=== PATIENT | male | born 1945 ===

== ENCOUNTER 2017-05-04 14:17 | Emergency (ER) | payer MEDICARE ==
[2017-05-04 14:17] VITALS: BMI 27.8
[2017-05-04 14:52] VITALS: RESP 18; TEMP 98.6
--- NOTE | 2017-05-04 15:21 | ED PDOC ---
Arrival/HPI - General Chief Complaint: Lower Extremity Problem/Injury Time Seen by Provider: 05/04/17 14:54 Historian: Patient - History of Present Illness Narrative History of Present Illness (Text): 05/04/17 15:15 72yo male with PMHx of Diabetes present with complaint of right sided hip pain that radiates laterally to his knee x 2days. He notes history of similar history years ago that resolved. Notes that pain is with ambulation. He is ambulating with a cane. Took Tylenol this morning with mild relieve. Denies trauma, focal weakness, saddle anesthesia, urinary/fecal incontinence, abdominal pain, calf pain, urinary symptoms, chest pain, SOB, recent travel. 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) Hx Cataracts: No - Renal Hx Renal Disorder: No - Endocrine/Metabolic Hx Endocrine Disorders: Yes Hx Diabetes Mellitus Type 2: Yes - Hematological/Oncological Hx Blood Disorders: No - Integumentary Hx Dermatological Disorder: No - Musculoskeletal/Rheumatological Hx Musculoskeletal Disorders: No - Gastrointestinal Hx Gastrointestinal Disorders: No - Genitourinary/Gynecological Hx Genitourinary Disorders: No - Psychiatric Hx Psychophysiologic Disorder: No Hx Substance Use: No - Surgical History Other/Comment: LEFT EYE SURGERY WHEN HE WAS A BABY - Anesthesia Hx Anesthesia: No Hx Anesthesia Reactions: No Family/Social History - Physician Review Nursing Documentation Reviewed: Yes Family/Social History: Unknown Family HX Smoking Status: Never Smoked Hx Alcohol Use: No Hx Substance Use: No Substance used: [id number] Allergies/Home Meds Allergies/Adverse Reactions: Allergies No Known Allergies Allergy (Verified 05/04/17 14:46) Home Medications: Home Meds Medication Instructions Recorded Confirmed Metformin ER [Glucophage XR] 500 mg PO BID 11/24/16 05/04/17 Review of Systems - Physician Review All systems were reviewed & negative as marked: Yes - Review of Systems Constitutional: Normal Eyes: Normal ENT: Normal Respiratory: Normal Cardiovascular: Normal Gastrointestinal: Normal Genitourinary Male: Normal Musculoskeletal: Arthralgias (Right hip pain) Skin: Normal Neurological: Normal Endocrine: Normal Hemo/Lymphatic: Normal Psychiatric: Normal Physical Exam Vital Signs Reviewed: Yes Vital Signs Temp Pulse Resp BP Pulse Ox 05/04/17 14:42 98.6 F 92 H 18 173/72 H 96 Temperature: Afebrile Blood Pressure: Normal Pulse: Regular Respiratory Rate: Normal Appearance: Positive for: Well-Appearing, Non-Toxic, Comfortable Pain Distress: None Mental Status: Positive for: Alert and Oriented X 3 - Systems Exam Head: Present: Atraumatic, Normocephalic Pupils: Present: PERRL Extroacular Muscles: Present: EOMI Conjunctiva: Present: Normal Mouth: Present: Moist Mucous Membranes Neck: Present: Normal Range of Motion Respiratory/Chest: Present: Clear to Auscultation, Good Air Exchange. No: Respiratory Distress, Accessory Muscle Use Cardiovascular: Present: Regular Rate and Rhythm, Normal S1, S2. No: Murmurs Abdomen: Present: Normal Bowel Sounds. No: Tenderness, Distention, Peritoneal Signs Back: Present: Pain with Leg Raise (Right leg). No: Midline Tenderness, Paraspinal Tenderness Upper Extremity: Present: Normal Inspection. No: Cyanosis, Edema Lower Extremity: Present: NORMAL PULSES, Normal ROM (Pain with full extension of right leg), Neurovascularly Intact. No: Edema, CALF TENDERNESS, Cyanosis, Tenderness, Swelling, Erythema, Deformity, Temperature Abnormalties Neurological: Present: GCS=15, CN II-XII Intact, Speech Normal Skin: Present: Warm, Dry, Normal Color. No: Rashes Psychiatric: Present: Alert, Oriented x 3, Normal Insight, Normal Concentration Medical Decision Making ED Course and Treatment: 05/04/17 18:44 B/L hip and LS xray - No acute finding. On re evaluation pt states his pain improved significantly. He was ambulatory and have no focal neurological deficit. he was given rx of Naprosyn, felexeril and Tramadol for pain. Referred to ortho. - RAD Interpretation Radiology Orders: 05/04/17 15:01 LS SPINE WITH OBL > 18 YRS OLD [RAD] Stat 05/04/17 15:21 Hip Bilateral [HIP MIN 3V W/ PELVIS ARISTEO] [RAD] Stat - Medication Orders Current Medication Orders: Discontinued Medications Diazepam (Valium) 5 mg PO ONCE ONE PRN Reason: Protocol Stop: 05/04/17 14:55 Last Admin: 05/04/17 15:28 Dose: 5 mg Ketorolac Tromethamine (Toradol) 60 mg IM STAT STA Stop: 05/04/17 14:55 Last Admin: 05/04/17 15:28 Dose: 60 mg Disposition/Present on Arrival - Present on Arrival Any Indicators Present on Arrival: No History of DVT/PE: No History of Uncontrolled Diabetes: No Urinary Catheter: No History of Decub. Ulcer: No History Surgical Site Infection Following: None - Disposition Have Diagnosis and Disposition been Completed?: Yes Diagnosis: Sciatica Disposition: HOME/ ROUTINE Disposition Time: 18:30 Patient Plan: Discharge Patient Problems: Current Active Problems Problem Status Onset Sciatica Acute Condition: STABLE Discharge Instructions (ExitCare): Sciatica (ED) Additional Instructions: Follow up with your doctor/Orthopedist Return to ED for any new or worsening symptoms Prescriptions: Cyclobenzaprine [Cyclobenzaprine HCl] 10 mg PO BID #10 tab Naproxen [Naprosyn] 500 mg PO BID #20 tablet traMADol [Ultram] 50 mg PO TID #10 tab Referrals: Aryan Navas [Primary Care Provider] - Follow up with primary Jed Keys DO [Staff Provider] - Follow up with primary
[2017-05-04 18:57] VITALS: O2SAT 98
[2017-05-04 18:58] VITALS: BP 150/88; PULSE 72
--- NOTE | 2017-05-05 08:13 | RAD ---
PROCEDURE: Radiographs of the Lumbar Spine. HISTORY: back pain COMPARISON: No prior. FINDINGS: BONES: Mild anterior wedge compression deformity of the L1 vertebra, of indeterminate age. Remaining vertebral bodies are maintained in height. There are Schmorl's nodes in the superior and inferior endplate of the L2 vertebra. There is curvilinear sclerosis in the inferior L4 vertebral body, uncertain significance. This may be due to a large old Schmorl's node. Transverse processes and posterior elements are intact. DISC SPACES: Narrowing of L4-5 disc space consistent with degenerative disc disease. The remaining disc spaces are preserved. OTHER FINDINGS: None. IMPRESSION: Mild anterior wedge compression deformity of the L1 vertebra, age indeterminate. Degenerative disc disease L4-5. No other acute abnormality.
--- NOTE | 2017-05-05 08:16 | RAD ---
PROCEDURE: Radiographs of the pelvis and bilateral hips HISTORY: right hip pain COMPARISON: None. FINDINGS: BONES: Pelvis: Unremarkable. Right hip:Unremarkable. Left hip:No fracture. There is a circumscribed lucent lesion in the left greater trochanter. This has a nonaggressive appearance. There is questionable curvilinear calcifications seen within this lesion which may reflect chondroid matrix. Consider further evaluation with magnetic resonance imaging. JOINTS: Right hip: Unremarkable. Left hip: Unremarkable. Sacroiliac Joints: Unremarkable. Pubic symphysis: Unremarkable. SOFT TISSUES: Normal. OTHER FINDINGS: None. IMPRESSION: No acute fracture. Lucent lesion of left greater trochanter with a nonaggressive appearance. Consider further evaluation with magnetic resonance imaging.
== END 2017-05-04 18:45 | disposition home or self-care (01) ==
LOC: ED 14:17
DX: M54.30 Sciatica, unspecified side (principal)
CPT/HCPCS: 72110; 73522; 96372; 99283; J1885

== ENCOUNTER 2018-01-17 15:21 | Inpatient (IN) | payer MEDICARE ==
[2018-01-17 15:54] VITALS: BMI 29.5
[2018-01-17 16:44] LABS: VENOUS BLOOD GAS BASE EXCESS 1.2 mmol/L (0.0-2.0); VENOUS BLOOD GAS PO2 42 mm/Hg (30-55)
--- NOTE | 2018-01-17 16:46 | ED PDOC ---
Arrival/HPI - General Chief Complaint: Abdominal Pain Time Seen by Provider: 01/17/18 16:07 Historian: Patient - History of Present Illness Narrative History of Present Illness (Text): 01/17/18 16:36 72 -year-old male with a history of diabetes who presents today with sudden onset of epigastric/upper abdominal pain that started at 11 AM today. Patient states the pain has improved it is now 6 out of 10 patient states the pain is intermittent and sharp and stabbing. Patient states he has slight pain in the back but denies that the pain radiates to the back. Patient denies chest pain or shortness of breath. Patient states he was recently diagnosed with bronchitis. Patient denies dizziness or weakness. Denies nausea vomiting diarrhea or constipation. Denies any urinary symptoms. Per patient's family,pt has a prior history of gallstones. Time/Duration: Other (11am) Symptom Onset: Sudden Symptom Course: Intermittent Quality: Stabbing Severity Level: 6 Past Medical History - Provider Review Nursing Documentation Reviewed: Yes - Travel History Have you recently traveled outside [place] w/in the past 3 mons?: No If Yes, travel location?: [facility] - Infectious Disease Hx of Infectious Diseases: None - Tetanus Immunization Tetanus Immunization: Unknown - Cardiac Hx Cardiac Disorders: Yes Hx Hypertension: Yes - Pulmonary Hx Respiratory Disorders: No - Neurological Hx Neurological Disorder: No - HEENT Hx HEENT Disorder: Yes (RETINAL DETACHMENT) 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) Hx Cataracts: No - Renal Hx Renal Disorder: No - Endocrine/Metabolic Hx Endocrine Disorders: Yes Hx Diabetes Mellitus Type 2: Yes - Hematological/Oncological Hx Blood Disorders: No - Integumentary Hx Dermatological Disorder: No - Musculoskeletal/Rheumatological Hx Musculoskeletal Disorders: No - Gastrointestinal Hx Gastrointestinal Disorders: No - Genitourinary/Gynecological Hx Genitourinary Disorders: No - Psychiatric Hx Psychophysiologic Disorder: No Hx Substance Use: No - Surgical History Hx Eye Surgery: Yes (LT EYE) Other/Comment: LEFT EYE SURGERY WHEN HE WAS A BABY - Anesthesia Hx Anesthesia: Yes Hx Anesthesia Reactions: No Hx Malignant Hyperthermia: No Family/Social History - Physician Review Nursing Documentation Reviewed: Yes Family/Social History: Unknown Family HX Smoking Status: Never Smoked Hx Alcohol Use: No Hx Substance Use: No Substance used: [id number] Allergies/Home Meds Allergies/Adverse Reactions: Allergies No Known Allergies Allergy (Verified 05/04/17 14:46) Home Medications: Home Meds Medication Instructions Recorded Confirmed Metformin ER [Glucophage XR] 500 mg PO BID 11/24/16 01/17/18 Atorvastatin [Lipitor] 1 tab PO DAILY 07/13/17 01/17/18 Multivitamin [Daily Essie] 1 tab PO DAILY 07/13/17 01/17/18 Review of Systems - Review of Systems Constitutional: absent: Fatigue, Fevers Respiratory: Cough. absent: SOB Cardiovascular: absent: Chest Pain, Palpitations Gastrointestinal: Abdominal Pain. absent: Constipation, Diarrhea, Nausea, Vomiting Genitourinary Male: absent: Dysuria, Frequency, Hematuria Musculoskeletal: Back Pain. absent: Arthralgias, Neck Pain Skin: absent: Rash, Pruritis Neurological: absent: Headache, Dizziness Psychiatric: absent: Anxiety, Depression Physical Exam Vital Signs Reviewed: Yes Vital Signs Temp Pulse Resp BP Pulse Ox 01/17/18 19:47 92 H 20 153/80 H 96 01/17/18 19:43 98.9 F 01/17/18 15:54 97.7 F 84 18 139/73 95 Temperature: Afebrile Blood Pressure: Normal Pulse: Regular Respiratory Rate: Normal Appearance: Positive for: Well-Appearing, Non-Toxic, Comfortable Pain Distress: None Mental Status: Positive for: Alert and Oriented X 3 - Systems Exam Head: Present: Atraumatic Mouth: Present: Moist Mucous Membranes Neck: Present: Normal Range of Motion Respiratory/Chest: Present: Clear to Auscultation, Good Air Exchange. No: Respiratory Distress, Accessory Muscle Use Cardiovascular: Present: Regular Rate and Rhythm, Normal S1, S2. No: Murmurs Abdomen: Present: Tenderness (+ RUQ, epigastric and mid abdominal tenderness. ) , Normal Bowel Sounds. No: Distention, Peritoneal Signs, Rebound, Guarding Back: Present: Normal Inspection. No: CVA Tenderness, Midline Tenderness, Paraspinal Tenderness Upper Extremity: Present: Normal ROM Lower Extremity: Present: Normal ROM. No: Edema Neurological: Present: GCS=15, Speech Normal Skin: Present: Warm, Dry, Normal Color. No: Rashes Psychiatric: Present: Alert, Oriented x 3 Medical Decision Making ED Course and Treatment: 01/17/18 16:48 Patient is nontoxic well appearing with stable vital signs presenting with abdominal pain CBC wbcs; 20.5 CMP: wnl Lipase: wnl trop: wnl Urinalysis: wnl blood cultures pending Patient reassessment: pt c/o chills; rectal temp; afebrile. zosyn GIVEN iv. Ultrasound:FINDINGS: LIVER: Measures 17.2 cm. Hepatopedal blood flow. Fatty infiltration manifest ultrasonographically as increased echogenicity of the liver parenchyma. No mass. No intrahepatic bile duct dilatation. GALLBLADDER: Cholelithiasis. Negative study for gallbladder wall thickening, pericholecystic fluid, sonographic Omrales's sign. COMMON BILE DUCT: Measures 4.2 mm. No stones. No dilatation. PANCREAS: Unremarkable as visualized. No mass. No ductal dilatation. RIGHT KIDNEY: Measures 5.7 x 10.5cm. Normal echogenicity. No calculus, mass, or hydronephrosis. LEFT KIDNEY: Measures 6.30 x 12cm. Normal echogenicity. No calculus, mass or hydronephrosis. SPLEEN: Obscured by overlying bowel gas. Non diagnostic assessment of the spleen AORTA: No aneurysmal dilatation. IVC: Unremarkable. OTHER FINDINGS: None. IMPRESSION: Cholelithiasis. No sonographic evidence of acute cholecystitis. CAT scan chest; FINDINGS: Lungs: Patchy nonspecific groundglass density and atelectatic changes are identified within the lungs bilaterally. Emphysematous/bullous changes are visualized within the right lower lobe. Mild emphysematous changes are identified within the left lower lobe, which are centrilobular and paraseptal. Within the right lower lobe, there is a 5 mm calcified lung nodule. No lung mass. Pleural space: No pneumothorax. No significant effusion. Mild right pleural thickening. Heart: A small amount of fluid is visualized within the superior pericardial recess. No cardiomegaly. Bones/joints: There is a mild compression fracture involving L1 vertebral body, indeterminate in acuity. Hypertrophic degenerative changes are noted within the spine. There is increasing cavity of multiple thoracic endplates, to stable. Vasculature: No thoracic aortic aneurysm. Lymph nodes: There is an enlarged right lower paratracheal lymph node within the mediastinum measuring 2.3 x 1.4 cm, without significant progression. A 1.3 cm left axillary lymph node is visualized, which has slightly decreased in size. Gallbladder and bile ducts: Multiple hyperdense gallstones are visualized within the gallbladder. Spleen: Linear hyperdense scarring is seen within the left upper quadrant of the abdomen. The spleen is absent. Kidneys and ureters: There is a tiny calcification of nonobstructing calculus within the right kidney. Nonspecific perinephric stranding is seen bilaterally. IMPRESSION: 1. Patchy nonspecific groundglass density and atelectatic changes are identified within the lungs bilaterally. There is mildly decreased aeration of the bilateral upper lobes. 2. Emphysematous/bullous changes are visualized within the right lower lobe. Mild emphysematous changes are identified within the left lower lobe. 3. There is an enlarged right lower paratracheal lymph node within the mediastinum measuring 2.3 x 1.4 cm, without significant progression. A 1.3 cm left axillary lymph node is visualized, which has slightly decreased in size. 4. Cholelithiasis. 5. There is a mild compression fracture involving L1 vertebral body, indeterminate in acuity. Clinical correlation is recommended. 6. Mild right pleural thickening. 7. Additional CT findings described above. ct of abd/pelvis; FINDINGS: Lower thorax: For discussion of findings of the lung bases, refer to the chest CT report from the same day. ABDOMEN: Liver: There is hypodense fatty infiltration of the liver. Gallbladder and bile ducts: Multiple hyperdense gallstones are visualized. Pancreas: Normal contour, without acute peripancreatic stranding. Spleen: The spleen is absent. Linear hyperdense scarring is visualized in the left upper quadrant of the abdomen. Adrenals: No mass. Kidneys and ureters: There is lobulation of the bilateral renal cortices. Nonspecific perinephric stranding is seen bilaterally. At the upper pole the right kidney, there is a hypodense probable cyst measuring 1.4 x 1.2 cm. Stomach and bowel: Colonic diverticula are identified, without acute inflammatory stranding of the adjacent mesentery. There is mild wall thickening of the transverse, descending and sigmoid colon, consistent with incomplete distention or mild colitis. Appendix: No findings to suggest acute appendicitis. PELVIS: Bladder: The bladder is distended. Reproductive: The prostate is mildly enlarged. ABDOMEN and PELVIS: Intraperitoneal space: No free air. Bones/joints: There is a mild compression of the L1 vertebral body, indeterminate in acuity. There is increased concavity of the inferior L4 endplate. Sclerotic and erosive changes are also identified of the L4 vertebral body inferiorly. Osteomyelitis cannot be excluded. Within the left greater trochanter and intertrochanteric region, there is a 3.5 x 4.4 x 2.6 cm lytic lesion There is abnormal density involving the bilateral femoral heads, likely secondary to arthropathy or due to osteonecrosis. Additional lytic lesions cannot be excluded. Oss[place] loose bodies are visualized adjacent to the anterior-inferior iliac spine. Soft tissues: There is a focal area of increased fat or lipoma within the paraspinal musculature measuring 3.6 x 2.9 cm. There is mild herniation of fat into the right inguinal canal. Vasculature: There is atherosclerotic calcification of the abdominal aorta. No abdominal aortic aneurysm. Lymph nodes: No enlarged lymph nodes. IMPRESSION: 1. There is hypodense fatty infiltration of the liver. 2. Diverticulosis. 3. There is mild wall thickening of the transverse, descending and sigmoid colon , consistent with incomplete distention or mild colitis. 4. The prostate is mildly enlarged. 5. The bladder is distended. 6. There is a mild compression of the L1 vertebral body, indeterminate in acuity. There is increased concavity of the inferior L4 endplate. Sclerotic and erosive changes are also identified of the L4 vertebral body inferiorly. Osteomyelitis cannot be excluded. Clinical correlation and an MRI of the lumbar spine with/without contrast is recommended. 7. Within the left greater trochanter and intertrochanteric region, there is a 3.5 x 4.4 x 2.6 cm lytic lesion . There is abnormal density involving the bilateral femoral heads, likely secondary to arthropathy or due to osteonecrosis. Additional lytic lesions cannot be excluded. 8. Additional CT findings described above. case was discussed with the surgical first assistant dr. Byron CHARLES who saw patient at beside; based on possible colitis on CT will add cipro/flagyl Discussed all results with patient in depth pt of dr. ballesteros will admit to hospitalist. case discussed with dr. matta accepts admission Impression: Abdominal pain, cholelithiasis, colitis, lytic lesions, compression fracture, leukocytosis. admit to med/surg. - Lab Interpretations Lab Results: 01/17/18 16:30 01/17/18 16:30 Lab Results 01/17/18 19:23: Urine Color Yellow, Urine Appearance Clear, Urine pH 7.5, Ur Specific [place] 1.015, Urine Protein Negative, Urine Glucose (UA) Negative, Urine Ketones Negative, Urine Blood Negative, Urine Nitrate Negative, Urine Bilirubin Negative, Urine Urobilinogen 1.0 H, Ur Leukocyte Esterase Negative 01/17/18 16:41: POC Glucose (mg/dL) 185 H 01/17/18 16:30: WBC 20.5 H, RBC 3.77, Hgb 11.7 L, Hct 31.6 L, MCV 83.8, MCH 31.0 , MCHC 37.0, RDW 19.4 H, Plt Count 396, MPV 11.0, Gran % 85.1 H, Lymph % (Auto) 4.2 L, [place] % (Auto) 10.4 H, Eos % (Auto) 0.1 L, Baso % (Auto) 0.2, Gran # 17.41 H, Lymph # (Auto) 0.9 L, [place] # (Auto) 2.1 H, Eos # (Auto) 0.0, Baso # ( Auto) 0.05, Neutrophils % (Manual) 84 H, Band Neutrophils % 3 H, Lymphocytes % ( Manual) 6 L, Monocytes % (Manual) 7 H, Platelet Evaluation Normal, Hypochromasia 1+, Anisocytosis (manual) 1+, Microcytosis (manual) 1+ 01/17/18 16:30: Sodium 143, Chloride 106, Potassium 4.9, Carbon Dioxide 26, Anion Gap 16, BUN 19, Creatinine 1.1, Est GFR ( Amer) > 60, Est GFR (Non- Af Amer) > 60, Random Glucose 183 H, Calcium 9.5, Total Bilirubin 4.1 H, AST 235 H, ALT 118 H, Alkaline Phosphatase 187 H, Lactate Dehydrogenase 786 H, Total Creatine Kinase 36, Troponin I < 0.01, Total Protein 7.5, Albumin 4.0, Globulin 3.6, Albumin/Globulin Ratio 1.1, Amylase 83, Lipase 210 01/17/18 16:30: pO2 42, VBG pH 7.30 L, VBG pCO2 59.0, VBG HCO3 29.0 H, VBG Total CO2 30.8 H, VBG O2 Sat (Calc) 71.6 H, VBG Base Excess 1.2, VBG Potassium 5.1, Sodium 140.0, Chloride 107.0, Glucose 188 H, Lactate 1.8, FiO2 21.0, Venous Blood Potassium 5.1 - RAD Interpretation Radiology Orders: 01/17/18 16:08 CHEST PORTABLE [RAD] Stat 01/17/18 16:22 ABD & PELVIS IV CONTRAST ONLY [CT] Stat 01/17/18 17:02 ABDOMEN COMPLETE [US] Stat 01/17/18 18:30 CHEST W/O CONTRAST [CT] Stat - Medication Orders Current Medication Orders: Ceftriaxone Sodium (Rocephin 1 Gram Ivpb) 1 gm in 100 mls @ 100 mls/hr IVPB DAILY JENAE PRN Reason: Protocol Sodium Chloride (Sodium Chloride 0.9%) 1,000 mls @ 100 mls/hr IV .Q10H JENAE Ciprofloxacin (Cipro 400mg/200ml Dsw) 400 mg in 200 mls @ 133.3 mls/hr IVPB STAT STA PRN Reason: Protocol Stop: 01/17/18 22:29 Metronidazole (Flagyl) 500 mg in 100 mls @ 100 mls/hr IVPB STAT STA PRN Reason: Protocol Stop: 01/17/18 21:58 Discontinued Medications Piperacillin Sod/Tazobactam Sod (Zosyn 3.375 In Ns 100ml) 100 mls @ 200 mls/hr IVPB STAT STA PRN Reason: Protocol Stop: 01/17/18 17:50 Last Admin: 01/17/18 19:21 Dose: 200 mls/hr eMAR Start Stop Document 01/17/18 19:21 HI (Rec: 01/17/18 19:21 HI [id number]) Intravenous Solution Start Date 01/17/18 Start Time 19:21 Disposition/Present on Arrival - Present on Arrival Any Indicators Present on Arrival: No History of DVT/PE: No History of Uncontrolled Diabetes: No Urinary Catheter: No History of Decub. Ulcer: No History Surgical Site Infection Following: None - Disposition Have Diagnosis and Disposition been Completed?: Yes Diagnosis: Leukocytosis, Cholelithiasis, Elevated LFTs, Compression fracture, Lytic bone lesion of hip, Colitis Disposition: HOSPITALIZED Disposition Time: 21:07 Patient Plan: Admission Patient Problems: Current Active Problems Problem Status Onset Cholelithiasis Acute Colitis Acute Compression fracture Acute Elevated LFTs Acute Leukocytosis Acute Lytic bone lesion of hip Acute Condition: FAIR Referrals: Aryan Ballesteros [Primary Care Provider] - Follow up with primary Forms: [employer] ([place])
[2018-01-17 16:53] LABS: BASO # 0.05 K/mm3 (0.0-2.0); BASO % 0.2 % (0.0-3.0); EOS % 0.1 % (1.5-5.0); GRAN # 17.41 (1.4-6.5); GRAN % 85.1 % (50.0-68.0); HEMOGLOBIN 11.7 g/dL (14.0-18.0); LYMPH # 0.9 (1.2-3.4); LYMPH % 4.2 % (22.0-35.0); MEAN CELL VOLUME 83.8 fl (80.0-105.0); MONO # 2.1 (0.1-0.6); MONO % 10.4 % (1.0-6.0); PLATELET COUNT 396 10^3/uL (120.0-450.0); RBC 3.77 10^6/uL (3.5-6.1); RED CELL DISTRIBUTION WIDTH 19.4 % (11.5-14.5); WHITE BLOOD COUNT 20.5 10^3/ul (4.5-11.0)
[2018-01-17 17:00] LABS: ALB/GLOB RATIO 1.1 (1.1-1.8); ALT/SGPT 118 U/L (7-56); AMYLASE 83 U/L (35-125); AST/SGOT 235 U/L (17-59); BLOOD UREA NITROGEN 19 mg/dL (7-21); CALCIUM 9.5 mg/dL (8.4-10.5); GFR AFRICAN-AMERICAN > 60; GFR NON-AFRICAN AMERICAN > 60; LIPASE 210 U/L (23-300)
--- NOTE | 2018-01-17 17:02 | RAD ---
HISTORY: abd pain COMPARISON: 01/09/2018 FINDINGS: LUNGS: Bibasilar linear atelectatic and/or fibrotic changes are noted current appearance is eccentric by the apical lordotic projection. PLEURA: No significant pleural effusion identified, no pneumothorax apparent. Chronic right inferolateral pleural thickening reaction. CARDIOVASCULAR: Probable top-normal heart size. OSSEOUS STRUCTURES: Bilateral shoulder arthrosis. VISUALIZED UPPER ABDOMEN: Normal. OTHER FINDINGS: None. IMPRESSION: Allowing for differences in technique, no interval pathology noted
[2018-01-17 17:17] LABS: TROPONIN I < 0.01 ng/mL
[2018-01-17] MEDS ORDERED: Piperacillin/Tazobact 3.375 gm 100 ML IVPB STA (17:21)
[2018-01-17 17:46] LABS: BAND 3 % (0-2); NEUTROPHIL 84 % (50.0-70.0)
[2018-01-17 17:47] LABS: ANISOCYTOSIS 1+; HYPOCHROMIA 1+; LYMPHOCYTE 6 % (22.0-35.0); MICROCYTOSIS 1+; MONOCYTE 7 % (1.0-6.0); PLATELET ESTIMATE NORMAL (NORMAL)
[2018-01-17] MEDS ORDERED: Iohexol 350 MG/100 ML VIAL ONE (18:12)
--- NOTE | 2018-01-17 18:47 | US ---
HISTORY: upper abdominal pain COMPARISON: None. TECHNIQUE: Sonographic evaluation of the abdomen. FINDINGS: LIVER: Measures 17.2 cm. Hepatopedal blood flow. Fatty infiltration manifest ultrasonographically as increased echogenicity of the liver parenchyma. No mass. No intrahepatic bile duct dilatation. GALLBLADDER: Cholelithiasis. Negative study for gallbladder wall thickening, pericholecystic fluid, sonographic Morales's sign. COMMON BILE DUCT: Measures 4.2 mm. No stones. No dilatation. PANCREAS: Unremarkable as visualized. No mass. No ductal dilatation. RIGHT KIDNEY: Measures 5.7 x 10.5cm. Normal echogenicity. No calculus, mass, or hydronephrosis. LEFT KIDNEY: Measures 6.30 x 12cm. Normal echogenicity. No calculus, mass or hydronephrosis. SPLEEN: Obscured by overlying bowel gas. Non diagnostic assessment of the spleen AORTA: No aneurysmal dilatation. IVC: Unremarkable. OTHER FINDINGS: None. IMPRESSION: Cholelithiasis. No sonographic evidence of acute cholecystitis.
[2018-01-17 19:36] LABS: PH,URINE 7.5 (4.7-8.0); URINE APPEARANCE CLEAR (CLEAR); URINE BILIRUBIN NEGATIVE (NEGATIVE); URINE BLOOD NEGATIVE (NEGATIVE); URINE COLOR YELLOW (YELLOW); URINE GLUCOSE (UA) NEGATIVE (NEGATIVE); URINE LEUKOCYTE ESTERASE NEGATIVE Leu/uL (NEGATIVE); URINE PROTEIN NEGATIVE mg/dL (<30 mg/dL)
--- NOTE | 2018-01-17 20:28 | CP.PCM.CON ---
History of Present Illness - History of Present Illness History of Present Illness: Surgery 72 M w PMH of Cholelithiasis, DM, and GERD came with RUQ and epigastric area that started yesterday. Pain is abrubt and constant. Doesn't radiate. Reports chills. Denies N/V/D/CP/SOB/diarreah/hematemesis/hematochezia/dysuria/oliguria/ hematuria/hemoptesis. Pt reports travelling from [place] about 1 month ago. Denies change in bowel habit/ sick contact/ change in diet. Pt had EGD/ colonoscopy in the past and showed GERD, esophagitis, and adenomatous polyps. Pt had similar pain in the past and is diagnosed with cholelithiasis before. WBC was 20k with elevated LFT. US shows gallstones on the neck of the gallbladder, mildly thicken GB wall and 4mm CBD. PMH : DM, GERD, Esophagitis, Colon polyps PSH: L finger sx, L eye sx for retinal disease SS: Lives with family. Non Smoker. 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) Hx Cataracts: No - RENAL Hx Chronic Kidney Disease: No - ENDOCRINE/METABOLIC Hx Endocrine Disorders: Yes Hx Diabetes Mellitus Type 2: Yes - HEMATOLOGICAL/ONCOLOGICAL Hx Blood Disorders: No - INTEGUMENTARY Hx Dermatological Problems: No - MUSCULOSKELETAL/RHEUMATOLOGICAL Hx Musculoskeletal Disorders: No - GASTROINTESTINAL Hx Gastrointestinal Disorders: No - GENITOURINARY/GYNECOLOGICAL Hx Genitourinary Disorders: No - PSYCHIATRIC Hx Psychophysiologic Disorder: No Hx Substance Use: No - SURGICAL HISTORY Hx Eye Surgery: Yes (LT EYE) Other/Comment: LEFT EYE SURGERY WHEN HE WAS A BABY - ANESTHESIA Hx Anesthesia: Yes Hx Anesthesia Reactions: No Hx Malignant Hyperthermia: No Meds Allergies/Adverse Reactions: Allergies Allergy/AdvReac Type Severity Reaction Status Date / Time No Known Allergies Allergy Verified 05/04/17 14:46 - Medications Medications: Current Medications Ceftriaxone Sodium (Rocephin 1 Gram Ivpb) 1 gm in 100 mls @ 100 mls/hr IVPB DAILY [facility] PRN Reason: Protocol Sodium Chloride (Sodium Chloride 0.9%) 1,000 mls @ 100 mls/hr IV .Q10H JENAE Physical Exam - Constitutional Appears: Non-toxic - Head Exam Head Exam: ATRAUMATIC, NORMAL INSPECTION, NORMOCEPHALIC - Eye Exam Eye Exam: absent: Normal appearance - ENT Exam ENT Exam: Mucous Membranes Moist, Normal Exam - Neck Exam Neck exam: Positive for: Normal Inspection - Respiratory Exam Respiratory Exam: Clear to Auscultation Bilateral, NORMAL BREATHING PATTERN - Cardiovascular Exam Cardiovascular Exam: REGULAR RHYTHM, +S1, +S2 - GI/Abdominal Exam GI & Abdominal Exam: Normal Bowel Sounds, Soft, Tenderness Additional comments: RUQ, Epigastric TTP - Extremities Exam Extremities exam: Positive for: full ROM, normal inspection - Back Exam Back exam: NORMAL INSPECTION - Neurological Exam Neurological exam: Alert, CN II-XII Intact, Normal Gait, Oriented x3, Reflexes Normal - Psychiatric Exam Psychiatric exam: Normal Affect, Normal Mood - Skin Skin Exam: Dry, Intact, Normal Color, Warm Results - Vital Signs Recent Vital Signs: Last Vital Signs Temp 98.9 F 01/17/18 19:43 Pulse 92 H 01/17/18 19:47 Resp 20 01/17/18 19:47 BP 153/80 H 01/17/18 19:47 Pulse Ox 96 01/17/18 19:47 - Labs Result Diagrams: 01/17/18 16:30 01/17/18 16:30 Labs: Laboratory Results - last 24 hr 01/17/18 01/17/18 01/17/18 16:30 16:30 16:30 WBC 20.5 H RBC 3.77 Hgb 11.7 L Hct 31.6 L MCV 83.8 MCH 31.0 MCHC 37.0 RDW 19.4 H Plt Count 396 MPV 11.0 Gran % 85.1 H Lymph % (Auto) 4.2 L [place] % (Auto) 10.4 H Eos % (Auto) 0.1 L Baso % (Auto) 0.2 Gran # 17.41 H Lymph # (Auto) 0.9 L [place] # (Auto) 2.1 H Eos # (Auto) 0.0 Baso # (Auto) 0.05 Neutrophils % (Manual) 84 H Band Neutrophils % 3 H Lymphocytes % (Manual) 6 L Monocytes % (Manual) 7 H Platelet Evaluation Normal Hypochromasia 1+ Anisocytosis (manual) 1+ Microcytosis (manual) 1+ pO2 42 VBG pH 7.30 L VBG pCO2 59.0 VBG HCO3 29.0 H VBG Total CO2 30.8 H VBG O2 Sat (Calc) 71.6 H VBG Base Excess 1.2 VBG Potassium 5.1 Sodium 140.0 143 Chloride 107.0 106 Glucose 188 H Lactate 1.8 FiO2 21.0 Potassium 4.9 Carbon Dioxide 26 Anion Gap 16 BUN 19 Creatinine 1.1 Est GFR ( Amer) > 60 Est GFR (Non-Af Amer) > 60 POC Glucose (mg/dL) Random Glucose 183 H Calcium 9.5 Total Bilirubin 4.1 H AST 235 H ALT 118 H Alkaline Phosphatase 187 H Lactate Dehydrogenase 786 H Total Creatine Kinase 36 Troponin I < 0.01 Total Protein 7.5 Albumin 4.0 Globulin 3.6 Albumin/Globulin Ratio 1.1 Amylase 83 Lipase 210 Venous Blood Potassium 5.1 Urine Color Urine Appearance Urine pH Ur Specific [place] Urine Protein Urine Glucose (UA) Urine Ketones Urine Blood Urine Nitrate Urine Bilirubin Urine Urobilinogen Ur Leukocyte Esterase 01/17/18 01/17/18 16:41 19:23 WBC RBC Hgb Hct MCV MCH MCHC RDW Plt Count MPV Gran % Lymph % (Auto) [place] % (Auto) Eos % (Auto) Baso % (Auto) Gran # Lymph # (Auto) [place] # (Auto) Eos # (Auto) Baso # (Auto) Neutrophils % (Manual) Band Neutrophils % Lymphocytes % (Manual) Monocytes % (Manual) Platelet Evaluation Hypochromasia Anisocytosis (manual) Microcytosis (manual) pO2 VBG pH VBG pCO2 VBG HCO3 VBG Total CO2 VBG O2 Sat (Calc) VBG Base Excess VBG Potassium Sodium Chloride Glucose Lactate FiO2 Potassium Carbon Dioxide Anion Gap BUN Creatinine Est GFR ( Amer) Est GFR (Non-Af Amer) POC Glucose (mg/dL) 185 H Random Glucose Calcium Total Bilirubin AST ALT Alkaline Phosphatase Lactate Dehydrogenase Total Creatine Kinase Troponin I Total Protein Albumin Globulin Albumin/Globulin Ratio Amylase Lipase Venous Blood Potassium Urine Color Yellow Urine Appearance Clear Urine pH 7.5 Ur Specific [place] 1.015 Urine Protein Negative Urine Glucose (UA) Negative Urine Ketones Negative Urine Blood Negative Urine Nitrate Negative Urine Bilirubin Negative Urine Urobilinogen 1.0 H Ur Leukocyte Esterase Negative Assessment & Plan - Assessment and Plan (Free Text) Assessment: Cholecystitis v symtomatic cholelithiasis -NPO -IVF hydration -IV ABX Rocephin for cholecystitis -Strict intake and output : Morales -Medical management -Trend LFT, WBC -Monitor VS DW Dr. Iqbal
--- NOTE | 2018-01-17 20:42 | CT ---
EXAM: CT Chest Without Intravenous Contrast EXAM DATE/TIME: 01/17/2018 6:30 PM CLINICAL HISTORY: The patient age is 72 years old and is male; Abnormal findings; Abnormal radiologic exam of lung or chest; Additional info: Abdominal pain/ abnormal cxr; Leukocytosis r/opna Facility exam id and description: Ct chests chest w/o contrast TECHNIQUE: Axial computed tomography images of the chest without intravenous contrast. All CT scans at this facility use one or more dose reduction techniques, viz.: automated exposure control; ma/kV adjustment per patient size (including targeted exams where dose is matched to indication; i.e. head); or iterative reconstruction technique. Coronal and sagittal reformatted images were created and reviewed. COMPARISON: CT - CHEST W/O CONTRAST 2016-01-05 13:10 FINDINGS: Lungs: Patchy nonspecific groundglass density and atelectatic changes are identified within the lungs bilaterally. Emphysematous/bullous changes are visualized within the right lower lobe. Mild emphysematous changes are identified within the left lower lobe, which are centrilobular and paraseptal. Within the right lower lobe, there is a 5 mm calcified lung nodule. No lung mass. Pleural space: No pneumothorax. No significant effusion. Mild right pleural thickening. Heart: A small amount of fluid is visualized within the superior pericardial recess. No cardiomegaly. Bones/joints: There is a mild compression fracture involving L1 vertebral body, indeterminate in acuity. Hypertrophic degenerative changes are noted within the spine. There is increasing cavity of multiple thoracic endplates, to stable. Vasculature: No thoracic aortic aneurysm. Lymph nodes: There is an enlarged right lower paratracheal lymph node within the mediastinum measuring 2.3 x 1.4 cm, without significant progression. A 1.3 cm left axillary lymph node is visualized, which has slightly decreased in size. Gallbladder and bile ducts: Multiple hyperdense gallstones are visualized within the gallbladder. Spleen: Linear hyperdense scarring is seen within the left upper quadrant of the abdomen. The spleen is absent. Kidneys and ureters: There is a tiny calcification of nonobstructing calculus within the right kidney. Nonspecific perinephric stranding is seen bilaterally. IMPRESSION: 1. Patchy nonspecific groundglass density and atelectatic changes are identified within the lungs bilaterally. There is mildly decreased aeration of the bilateral upper lobes. 2. Emphysematous/bullous changes are visualized within the right lower lobe. Mild emphysematous changes are identified within the left lower lobe. 3. There is an enlarged right lower paratracheal lymph node within the mediastinum measuring 2.3 x 1.4 cm, without significant progression. A 1.3 cm left axillary lymph node is visualized, which has slightly decreased in size. 4. Cholelithiasis. 5. There is a mild compression fracture involving L1 vertebral body, indeterminate in acuity. Clinical correlation is recommended. 6. Mild right pleural thickening. 7. Additional CT findings described above.
--- NOTE | 2018-01-17 20:53 | CT ---
EXAM: CT Abdomen and Pelvis With Intravenous Contrast EXAM DATE/TIME: 01/17/2018 4:22 PM CLINICAL HISTORY: The patient age is 72 years old and is male; Pain; Abdominal pain; Generalized; Patient HX: Pt denies any abdominal SX; Additional info: [facility] pain Facility exam id and description: Ct chests chest w/o contrast TECHNIQUE: Axial computed tomography images of the abdomen and pelvis with intravenous contrast. All CT scans at this facility use one or more dose reduction techniques, viz.: automated exposure control; ma/kV adjustment per patient size (including targeted exams where dose is matched to indication; i.e. head); or iterative reconstruction technique. Coronal and sagittal reformatted images were created and reviewed. CONTRAST: 100 mL of OMNI 350 administered intravenously. COMPARISON: DX - HIP ARISTEO W/WO PELVIS 3-4 VIEWS 2017-05-04 17:05 FINDINGS: Lower thorax: For discussion of findings of the lung bases, refer to the chest CT report from the same day. ABDOMEN: Liver: There is hypodense fatty infiltration of the liver. Gallbladder and bile ducts: Multiple hyperdense gallstones are visualized. Pancreas: Normal contour, without acute peripancreatic stranding. Spleen: The spleen is absent. Linear hyperdense scarring is visualized in the left upper quadrant of the abdomen. Adrenals: No mass. Kidneys and ureters: There is lobulation of the bilateral renal cortices. Nonspecific perinephric stranding is seen bilaterally. At the upper pole the right kidney, there is a hypodense probable cyst measuring 1.4 x 1.2 cm. Stomach and bowel: Colonic diverticula are identified, without acute inflammatory stranding of the adjacent mesentery. There is mild wall thickening of the transverse, descending and sigmoid colon, consistent with incomplete distention or mild colitis. Appendix: No findings to suggest acute appendicitis. PELVIS: Bladder: The bladder is distended. Reproductive: The prostate is mildly enlarged. ABDOMEN and PELVIS: Intraperitoneal space: No free air. Bones/joints: There is a mild compression of the L1 vertebral body, indeterminate in acuity. There is increased concavity of the inferior L4 endplate. Sclerotic and erosive changes are also identified of the L4 vertebral body inferiorly. Osteomyelitis cannot be excluded. Within the left greater trochanter and intertrochanteric region, there is a 3.5 x 4.4 x 2.6 cm lytic lesion There is abnormal density involving the bilateral femoral heads, likely secondary to arthropathy or due to osteonecrosis. Additional lytic lesions cannot be excluded. Ossific loose bodies are visualized adjacent to the anterior-inferior iliac spine. Soft tissues: There is a focal area of increased fat or lipoma within the paraspinal musculature measuring 3.6 x 2.9 cm. There is mild herniation of fat into the right inguinal canal. Vasculature: There is atherosclerotic calcification of the abdominal aorta. No abdominal aortic aneurysm. Lymph nodes: No enlarged lymph nodes. IMPRESSION: 1. There is hypodense fatty infiltration of the liver. 2. Diverticulosis. 3. There is mild wall thickening of the transverse, descending and sigmoid colon, consistent with incomplete distention or mild colitis. 4. The prostate is mildly enlarged. 5. The bladder is distended. 6. There is a mild compression of the L1 vertebral body, indeterminate in acuity. There is increased concavity of the inferior L4 endplate. Sclerotic and erosive changes are also identified of the L4 vertebral body inferiorly. Osteomyelitis cannot be excluded. Clinical correlation and an MRI of the lumbar spine with/without contrast is recommended. 7. Within the left greater trochanter and intertrochanteric region, there is a 3.5 x 4.4 x 2.6 cm lytic lesion . There is abnormal density involving the bilateral femoral heads, likely secondary to arthropathy or due to osteonecrosis. Additional lytic lesions cannot be excluded. 8. Additional CT findings described above.
[2018-01-17] MEDS ORDERED: Ciprofloxacin 400mg/200ml D5W 400 MG/200 ML BAG IVPB STA (20:59)
[2018-01-17] MEDS ORDERED: metroNIDAZOLE IV 500 mg/100 ml 500 MG/100 ML BAG IVPB STA (20:59)
[2018-01-17] MEDS ORDERED: Sodium Chloride 0.9% 1,000 ML IV STA ×2 (21:59→22:18)
--- NOTE | 2018-01-17 22:27 | CP.PCM.HP ---
<Harish Marin - Last Filed: 01/18/18 00:37> History of Present Illness - History of Present Illness History of Present Illness: Harish Marin PGY1 H&P Note for Hospitalist Service cc: RUQ Pain x1 day Mr. Mclain is a 72yo M with a PMH of DM2, HTN, HLD and GERD who presents to ED with RUQ pain x1 day. The patient speaks Filipino only but daughter is bedside and provides translation. The patient states that the onset was sudden and constant, non-radiating, a/w chills. Patient denies nausea/ vomiting, diarrhea/constipation (last BM was this morning), bowel habit changes , urinary habit changes, feeling of incomplete urinary voiding, chest pain, fevers, shortness of breath, cough, hematemesis/hematochezia or any weight changes. The patient was in [place] from 08/2017 to early 12/2017, and there, the patient was hospitalized for 3 days for pneumonia, non-complicated by intubation or ICU stay. The daughter states that the family brought the patient back to the [place] because of increased ETOH use there. She also states that the patient is a picky eater and only eats his 's food, and no one else at home is sick. 12-pt ROS was reviewed and is otherwise unremarkable. Prior chart review revealed EGD/colonoscopy w/ biopsies in 2017 showing small hiatus hernia, esophagitis consistent w/ morena, gastritis, bleeding internal hemorrhoids and hyperplastic colonic polyp. 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 compression deformity noted in L4 vertebrae. PMH : as above PSH: L finger contracture sx, L eye sx for retinal disease Meds: as per MAR NKDA SHx: Lives with and daughters. +tobacco hx 1pk/d for many years but quit 30 yrs ago. denies ETOH use but according to daughter, was drinking heavily while away in [place]. denies IVDA, or any illicit drug use. Present on Admission - Present on Admission Any Indicators Present on Admission: No Review of Systems - Review of Systems All systems: reviewed and no additional remarkable complaints except (as per HPI ) Past Patient History - Infectious Disease Hx of Infectious Diseases: None - Tetanus Immunizations Tetanus Immunization: Unknown - Past Medical History & Family History Past Medical History?: Yes - Past Social History Smoking Status: Former Smoker Alcohol: None Drugs: Denies Home Situation {Lives}: With Family - CARDIAC Hx Cardiac Disorders: Yes Hx Hypercholesterolemia: Yes Hx Hypertension: Yes - PULMONARY Hx Respiratory Disorders: No - NEUROLOGICAL Hx Neurological Disorder: No - HEENT Hx 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) Hx Cataracts: No - RENAL Hx Chronic Kidney Disease: No - ENDOCRINE/METABOLIC Hx Endocrine Disorders: Yes Hx Diabetes Mellitus Type 2: Yes - HEMATOLOGICAL/ONCOLOGICAL Hx Blood Disorders: No - INTEGUMENTARY Hx Dermatological Problems: No - MUSCULOSKELETAL/RHEUMATOLOGICAL Hx Musculoskeletal Disorders: No - GASTROINTESTINAL Hx Gastrointestinal Disorders: No - GENITOURINARY/GYNECOLOGICAL Hx Genitourinary Disorders: No Hx Prostate Cancer: No Hx Prostate Problems: No - PSYCHIATRIC Hx Psychophysiologic Disorder: No Hx Substance Use: No - SURGICAL HISTORY Hx Eye Surgery: Yes (LT EYE) Hx Orthopedic Surgery: Yes (hand tendon release) Other/Comment: LEFT EYE SURGERY WHEN HE WAS A BABY - ANESTHESIA Hx Anesthesia: Yes Hx Anesthesia Reactions: No Hx Malignant Hyperthermia: No Meds Allergies/Adverse Reactions: Allergies Allergy/AdvReac Type Severity Reaction Status Date / Time No Known Allergies Allergy Verified 05/04/17 14:46 Physical Exam - Constitutional Appears: Non-toxic, No Acute Distress - Head Exam Head Exam: ATRAUMATIC, NORMAL INSPECTION - Eye Exam Eye Exam: EOMI Additional comments: L eye is opacified completely R eye pterygium - ENT Exam ENT Exam: Mucous Membranes Moist - Neck Exam Neck exam: Positive for: Normal Inspection, Tenderness - Respiratory Exam Respiratory Exam: Clear to Auscultation Bilateral, NORMAL BREATHING PATTERN. absent: Rales, Rhonchi, Wheezes, Respiratory Distress - Cardiovascular Exam Cardiovascular Exam: Tachycardia, +S1, +S2 - GI/Abdominal Exam GI & Abdominal Exam: Normal Bowel Sounds, Soft, Tenderness (diffuse to deep palpation RUQ mainly). absent: Distended, Guarding, Organomegaly, Rebound, Rigid - Extremities Exam Extremities exam: Positive for: normal inspection. Negative for: calf tenderness, pedal edema Additional comments: no inguinal LAD appreciated - Back Exam Back exam: NORMAL INSPECTION - Neurological Exam Neurological exam: Alert, CN II-XII Intact, Oriented x3 - Psychiatric Exam Psychiatric exam: Normal Affect, Normal Mood - Skin Skin Exam: Normal Color, Warm (w/ generalized piloerection) Results - Vital Signs Recent Vital Signs: Last Vital Signs Temp 102.4 F H 01/17/18 21:40 Pulse 114 H 01/17/18 21:36 Resp 18 01/17/18 21:36 BP 148/69 01/17/18 21:36 Pulse Ox 95 01/17/18 21:36 - Labs Result Diagrams: 01/17/18 16:30 01/17/18 16:30 Assessment & Plan - Assessment and Plan (Free Text) Assessment: 72yo M with a PMh of DM2, HTN, HLD and GERD who presents to ED with RUQ pain x1 day. Patient meets SIRS criteria and sepsis likely 2/2 gastritis vs colitis vs cholecystitis vs pneumonia. BP is stable, however, patient is tachycardic. LFT's are elevated. Plan: 1. Sepsis - lactate not elevated, however, patient is febrile w/ bands and tachycardia is noted - abdominal US showed cholelithiasis w/ no signs of cholecystitis; fatty liver - CT a/p shows There is hypodense fatty infiltration of the liver. Diverticulosis. There is mild wall thickening of the transverse, descending and sigmoid colon, consistent with incomplete distention or mild colitis. The prostate is mildly enlarged. The bladder is distended. There is a mild compression of the L1 vertebral body, indeterminate in acuity. There is increased concavity of the inferior L4 endplate. Sclerotic and erosive changes are also identified of the L4 vertebral body inferiorly. Osteomyelitis cannot be excluded. Within the left greater trochanter and intertrochanteric region, there is a 3.5 x 4.4 x 2.6 cm lytic lesion . There is abnormal density involving the bilateral femoral heads, likely secondary to arthropathy or due to osteonecrosis. Additional lytic lesions cannot be excluded. - CT chest shows Patchy nonspecific groundglass density and atelectatic changes are identified within the lungs bilaterally. There is mildly decreased aeration of the bilateral upper lobes. Emphysematous/bullous changes are visualized within the right lower lobe. Mild emphysematous changes are identified within the left lower lobe. There is an enlarged right lower paratracheal lymph node within the mediastinum measuring 2.3 x 1.4 cm, without significant progression. A 1.3 cm left axillary lymph node is visualized, which has slightly decreased in size. Cholelithiasis. There is a mild compression fracture involving L1 vertebral body, indeterminate in acuity. Mild right pleural thickening. - Lipase and amylase were WNL - 2L NS bolus given and will cont @ 100cc/hr - blood, urine and stool cultures ordered - Zosyn given in ED - cipro and flagyl given in ED and will be continued - motrin PRN fevers given due to elevated LFTs so can't give tylenol at this time; monitor for changes in H/H given hx gastritis - NPO diet - zofran prn n/v - to r/o osteomyelitis in spine (seen on imaging,despite no significant tenderness in back), will order MRI and ESR/CRP - given lytic lesions, PSA ordered to assist in prostate eval; patient denies any urinary issues - EKG noted as NSR @ 84bpm w/ nonspecific T wave abnormalities - given risk factors and nonspecific presentation, will trend troponins Q6 to r/ o ACS - ID consulted, recs appreciated - surgery consulted, recs appreciated 2. Transaminitis - US and CT noted above - hepatitis panel and HBV AB ordered - HIV ordered - given ETOH use, ETOH level ordered - monitor for any signs of withdrawal - Surgery is consulted, recs appreciated 3. Hx DM2 - A1C ordered - ISS - Accuchecks - NPO at this time, then start HHD w/ carb consistent 4. Hx HTN - monitor VS at this time 5. Hx HLD - Lipid panel ordered - hold home Lipitor at this time given transaminitis 6. Hx GERD - PTX for GI ppx 7. Distended bladder on CT - bladder scan prn - straight cath PRN - monitor UOP PTX/SCDs for GI/DVT ppx NPO Patient was seen, examined and discussed with attending, Dr. Levar Marin PGY1 <Rachel Cristobal - Last Filed: 01/18/18 01:42> Results - Vital Signs Recent Vital Signs: Last Vital Signs Temp 101.3 F H 01/18/18 01:10 Pulse 109 H 01/18/18 00:00 Resp 20 01/18/18 00:00 BP 146/73 01/18/18 00:00 Pulse Ox 92 L 01/18/18 00:00 - Labs Result Diagrams: 01/17/18 16:30 01/17/18 16:30 Attending/Attestation - Attestation I have personally seen and examined this patient.: Yes I have fully participated in the care of the patient.: Yes I have reviewed all pertinent clinical information: Yes Notes (Text): 01/18/18 01:40 Agree with documentation and orders placed.
[2018-01-18] MEDS: Sodium Chloride 0.9% 1,000 ML IV SCH ×2 (00:31→12:38)
[2018-01-18] MEDS: Piperacillin/Tazobact 3.375 gm 100 ML IVPB SCH ×5 (00:31→23:38)
[2018-01-18] MEDS ORDERED: Pneumococcal 23-Valent Vaccine IM ONE (01:05)
[2018-01-18] MEDS: Insulin Lispro (humaLOG) MEDIUM Coverage SC SCH ×4 (01:14→16:59)
[2018-01-18 02:34] LABS: PROTHROMBIN TIME 13.5 SECONDS (9.4-12.5)
[2018-01-18 02:35] LABS: HDL CHOLESTEROL 29 mg/dL (29-60); INR 1.18 (0.93-1.08)
[2018-01-18 02:45] LABS: LDL CHOLESTEROL 42 mg/dL (0-129)
[2018-01-18 02:48] LABS: TROPONIN I 0.02 ng/mL
[2018-01-18] MEDS ORDERED: Magnesium Sulfate 1 gm in D5W 1 GM/100 ML BAG IVPB ONE (04:22)
[2018-01-18] MEDS ORDERED: metroNIDAZOLE IV 500 mg/100 ml 500 MG/100 ML BAG IVPB SCH (06:00)
[2018-01-18 07:41] LABS: BASO # 0.04 K/mm3 (0.0-2.0); BASO % 0.1 % (0.0-3.0); EOS % 0.1 % (1.5-5.0); GRAN # 25.17 (1.4-6.5); GRAN % 86.6 % (50.0-68.0); HEMOGLOBIN 10.8 g/dL (14.0-18.0); LYMPH # 1.2 (1.2-3.4); LYMPH % 4.1 % (22.0-35.0); MEAN CORPUSCULAR HEMOGLOBIN 30.2 pg (25.0-35.0); MEAN CORPUSCULAR HGB CONC 36.4 g/dl (31.0-37.0); MEAN PLATELET VOLUME 10.4 fl (7.0-11.0); MONO # 2.7 (0.1-0.6); MONO % 9.1 % (1.0-6.0); RBC 3.58 10^6/uL (3.5-6.1); RED CELL DISTRIBUTION WIDTH 19.2 % (11.5-14.5)
[2018-01-18 07:43] LABS: INR 1.2 (0.93-1.08); PROTHROMBIN TIME 13.8 SECONDS (9.4-12.5)
[2018-01-18 07:47] LABS: WHITE BLOOD COUNT 29.1 10^3/ul (4.5-11.0)
[2018-01-18 08:10] LABS: BLOOD UREA NITROGEN 16 mg/dL (7-21); GFR AFRICAN-AMERICAN > 60; GFR NON-AFRICAN AMERICAN 54
[2018-01-18 08:11] LABS: ALBUMIN 3.4 g/dL (3.0-4.8); ALT/SGPT 242 U/L (7-56); AST/SGOT 274 U/L (17-59); CALCIUM 8.8 mg/dL (8.4-10.5)
--- NOTE | 2018-01-18 08:39 | CP.PCM.PN ---
Subjective - Date & Time of Evaluation Date of Evaluation: 01/18/18 Time of Evaluation: 07:00 - Subjective Subjective: Patient seen and examined this morning. Patient had febrile episode x2 over night. Patient denies abdominal pain, nausea/vomiting, diarrhea. Objective - Vital Signs/Intake and Output Vital Signs (last 24 hours): Temp Pulse Resp BP Pulse Ox 99.5 F 85 20 143/76 96 01/18/18 07:53 01/18/18 07:53 01/18/18 07:53 01/18/18 07:53 01/18/18 07:53 Intake and Output: 01/18/18 01/18/18 06:59 18:59 Intake Total 2700 Output Total 1 Balance 2699 - Medications Medications: Current Medications Sodium Chloride (Sodium Chloride 0.9%) 1,000 mls @ 100 mls/hr IV .Q10H [facility] Last Admin: 01/18/18 00:31 Dose: 100 mls/hr Piperacillin Sod/Tazobactam Sod (Zosyn 3.375 In Ns 100ml) 100 mls @ 200 mls/hr IVPB Q6 [facility] PRN Reason: Protocol Stop: 01/25/18 00:16 Last Admin: 01/18/18 05:55 Dose: 200 mls/hr Ibuprofen (Motrin Tab) 400 mg PO Q4H PRN PRN Reason: Fever >100.4 F Insulin Human Lispro (Humalog Med) 0 units SC Q6 [facility] PRN Reason: Protocol Last Admin: 01/18/18 06:00 Dose: Not Given Ondansetron HCl (Zofran Inj) 4 mg IVP Q4H PRN PRN Reason: Nausea/Vomiting Pantoprazole Sodium (Protonix Inj) 40 mg IVP Q12 [facility] - Labs Labs: 01/18/18 06:50 01/18/18 06:50 PT 13.8 SECONDS (9.4-12.5) H 01/18/18 06:50 INR 1.20 (0.93-1.08) H 01/18/18 06:50 - Constitutional Appears: No Acute Distress - Head Exam Head Exam: NORMOCEPHALIC - ENT Exam ENT Exam: Mucous Membranes Moist - Cardiovascular Exam Cardiovascular Exam: +S1, +S2 - GI/Abdominal Exam GI & Abdominal Exam: Soft. absent: Distended, Firm, Guarding, Tenderness - Neurological Exam Neurological Exam: Alert, Awake, Oriented x3 - Psychiatric Exam Psychiatric exam: Normal Mood - Skin Skin Exam: Dry, Intact Assessment and Plan - Assessment and Plan (Free Text) Assessment: 72M with concern for ascending cholangitis Plan: -Primary team contacted, concerns for possible ascending cholangitis addressed -Consider ICU evaluation -Patient needs GI Consult, may need STAT ERCP -GI recs appreciated -F/u MRCP -F/u C. diff, ova, parasites cultures -F/u blood cultures -Will continue to follow -Further recs per Dr. Rasheed Tyson PGY2
[2018-01-18] MEDS ORDERED: cefTRIAXone 1 gm 1 GM/100 ML BAG IVPB SCH (10:00)
[2018-01-18] MEDS ORDERED: Ciprofloxacin 400mg/200ml D5W 400 MG/200 ML BAG IVPB SCH (10:00)
[2018-01-18] MEDS: Vancomycin 1gm in NS 250ml 1 GM/250 ML BAG IVPB SCH ×2 (10:46→21:18)
--- NOTE | 2018-01-18 11:04 | CP.CCUPN ---
CCU Subjective - Physician Review Subjective (Free Text): 01/18/18 11:00 72yo male pt presented with abdominal pain for one day. Pain was located in Right upper quadrant. Pain was not radiating. Pt also had fever overnight tonight and yesterday. Pt denies any nausea, vomiting and diarrhea. Stated he had decreased PO intake. Pt seen and examined at bedside. Pt is comfortable on room air and stated that abdominal pain is much improved. PMH: DM, HTN, PNA, HLD, GERD, Hiatal Hernia, Gastritis, ETOH abuse SHx: Lives with and daughters. +tobacco hx 1pk/d for many years but quit 30 yrs ago. denies ETOH use but according to daughter, was drinking heavily while away in [place]. denies IVDA, or any illicit drug use. CCU Objective - Physical Exam Head: Positive for: Atraumatic Mouth: Positive for: Moist Mucous Membranes Neck: Positive for: Normal Range of Motion Respiratory/Chest: Positive for: Clear to Auscultation, Good Air Exchange. Negative for: Respiratory Distress, Accessory Muscle Use Cardiovascular: Positive for: Regular Rate and Rhythm, Normal S1, S2. Negative for: Murmurs Abdomen: Positive for: Normal Bowel Sounds. Negative for: Tenderness (no tenderness appreciated on exam), Distention, Peritoneal Signs, Rebound, Guarding Back: Positive for: Normal Inspection. Negative for: CVA Tenderness, Midline Tenderness, Paraspinal Tenderness Upper Extremity: Positive for: Normal ROM Lower Extremity: Positive for: Normal ROM. Negative for: Edema Neurological: Positive for: GCS=15, Speech Normal Skin: Positive for: Warm, Dry, Normal Color. Negative for: Rashes Psychiatric: Positive for: Alert, Oriented x 3 - Medications Active Medications: Active Medications Generic Name Dose Route Start Last Admin Trade Name Freq PRN Reason Stop Dose Admin Sodium Chloride 1,000 mls @ 100 mls/hr 01/17/18 20:30 01/18/18 00:31 Sodium Chloride 0.9% IV 100 mls/hr .Q10H [facility] Administration Piperacillin Sod/Tazobactam Sod 100 mls @ 200 mls/hr 01/18/18 00:15 01/18/18 05:55 Zosyn 3.375 In Ns 100ml IVPB 01/25/18 00:16 200 mls/hr Q6 [facility] Administration Protocol Vancomycin HCl 1 gm in 250 mls @ 167 mls/hr 01/18/18 10:00 01/18/18 10:46 Vancomycin 1gm IVPB 167 mls/hr Q12H [facility] Administration Protocol Ibuprofen 400 mg 01/18/18 03:01 Motrin Tab PO Q4H PRN Fever >100.4 F Insulin Human Lispro 0 units 01/18/18 00:00 01/18/18 06:00 Humalog Med SC Not Given Q6 [facility] Protocol Ondansetron HCl 4 mg 01/17/18 21:59 Zofran Inj IVP Q4H PRN Nausea/Vomiting Pantoprazole Sodium 40 mg 01/18/18 10:00 01/18/18 10:48 Protonix Inj IVP 40 mg Q12 [facility] Administration - Patient Studies Fingerstick Blood Sugar Results: 151 Review of Systems - Review of Systems All systems: reviewed and no additional remarkable complaints except Critical Care Progress Note - Ventilator Checklist Head of Bed 30 Degrees: Yes PUD Prophalyxis: Yes DVT Prophylaxis: Yes Assessment/Plan - Assessment and Plan (Free Text) Plan: Sepsis \ Elevated LFT \ ro Cholangitis \ DM \ HTN \ ho ETOH abuse \ Emphysematous change on CT -hemodynamic monitoring to maintain MAP>65; currently stable; consider echo to assess LV -o2 supplementation to maintain Spo2>90 Pao2>60; currently comfortable on room air in no distress speaking full sentences -duoneb PRN -f\u Bun\Cr and U\o; replace e-lites; continue IVF -GI team eval -consider MRCP \ ERCP -consider IR team eval -CT C\A\P noted -surgical team following -NPO diet and aspiration precautions -broad spectrum abx as per ID team and f\u cultures -thiamine, folic acid and MVI -DVT \ PUD prophylaxis -DW primary team at bedside At this time pt remains hemodynamically stable, comfortable on room air in NAD. Pt has no abdominal pain on exam. Pt will not benefit from ICU level of care at this time, consider telemetry monitoring. Please reconsult if his condition changes or if necessary [facility] eval time 34min
--- NOTE | 2018-01-18 11:28 | CARD ---
APPROVED REPORT EKG Measurement Heart [id number] <Conclusion> Normal sinus rhythm Nonspecific T wave abnormality Abnormal ECG
[2018-01-18 11:58] LABS: HEPATITIS B SURFACE AG Negative (NEGATIVE)
[2018-01-18 12:03] LABS: HEPATITIS B CORE AB NEGATIVE (NEGATIVE)
--- NOTE | 2018-01-18 12:18 | CP.PCM.CON ---
<Nina Heredia - Last Filed: 01/18/18 12:21> History of Present Illness - History of Present Illness History of Present Illness: GI Fellow PGY 4 Consult Note This is a 72y male with a PMH of DM2, HTN, HLD, Alcohol abuse and GERD who presents to ED with RUQ pain for one day. Abdominal pain was acute onset, constant, non-radiating, with chills at home. Patient denies nausea/vomiting, diarrhea/constipation, shortness of breath, cough, hematemesis/hematochezia or any weight changes. Per review of records, family brought the [place] back [place] the [place] because of increased ETOH use there. Pt reports spiking fevers last night whihle in the hospital. Also, now pt is denying any abdominal pain. CT and Abd US show gallstones but no CBD dilation. CT also shows lutic lesions in spine concerning for osteomyelitis. EGD/colonoscopy w/ biopsies in 2017 showing small hiatus hernia, esophagitis consistent w/ morena, gastritis, bleeding internal hemorrhoids and hyperplastic colonic polyp. 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 compression deformity noted in L4 vertebrae. ROS: A 12-pt ROS was reviewed and is otherwise unremarkable PMH : as above PSH: L finger contracture sx, L eye sx for retinal disease SHx: +tobacco hx 1pk/d for many years but quit 30 yrs ago. denies ETOH use but according to daughter, was drinking heavily while away in [place], no illicit drug use FHx: neg for colon ca Past Patient History - Infectious Disease Hx of Infectious Diseases: None - Tetanus Immunizations Tetanus Immunization: Unknown - Past Medical History & Family History Past Medical History?: Yes - Past Social History Smoking Status: Former Smoker Alcohol: None Drugs: Denies Home Situation {Lives}: With Family - CARDIAC Hx Hypercholesterolemia: Yes Hx Hypertension: Yes - PULMONARY Hx Respiratory Disorders: No Hx Pneumonia: Yes - NEUROLOGICAL Hx Neurological Disorder: No - HEENT Hx 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) Hx Cataracts: No - RENAL Hx Chronic Kidney Disease: No - ENDOCRINE/METABOLIC Hx Diabetes Mellitus Type 2: Yes - HEMATOLOGICAL/ONCOLOGICAL Hx Blood Disorders: No - INTEGUMENTARY Hx Dermatological Problems: No - MUSCULOSKELETAL/RHEUMATOLOGICAL Hx Musculoskeletal Disorders: No - GASTROINTESTINAL Hx Gastrointestinal Disorders: No - GENITOURINARY/GYNECOLOGICAL Hx Prostate Problems: No - PSYCHIATRIC Hx Psychophysiologic Disorder: No - SURGICAL HISTORY Other/Comment: LEFT EYE SURGERY - ANESTHESIA Hx Anesthesia: Yes Hx Anesthesia Reactions: No Hx Malignant Hyperthermia: No Meds Allergies/Adverse Reactions: Allergies Allergy/AdvReac Type Severity Reaction Status Date / Time No Known Allergies Allergy Verified 05/04/17 14:46 - Medications Medications: Current Medications Folic Acid (Folic Acid) 1 mg PO DAILY [facility] Sodium Chloride (Sodium Chloride 0.9%) 1,000 mls @ 100 mls/hr IV .Q10H [facility] Last Admin: 01/18/18 00:31 Dose: 100 mls/hr Piperacillin Sod/Tazobactam Sod (Zosyn 3.375 In Ns 100ml) 100 mls @ 200 mls/hr IVPB Q6 [facility] PRN Reason: Protocol Stop: 01/25/18 00:16 Last Admin: 01/18/18 05:55 Dose: 200 mls/hr Vancomycin HCl (Vancomycin 1gm) 1 gm in 250 mls @ 167 mls/hr IVPB Q12H [facility] PRN Reason: Protocol Last Admin: 01/18/18 10:46 Dose: 167 mls/hr Ibuprofen (Motrin Tab) 400 mg PO Q4H PRN PRN Reason: Fever >100.4 F Insulin Human Lispro (Humalog Med) 0 units SC Q6 [facility] PRN Reason: Protocol Last Admin: 01/18/18 06:00 Dose: Not Given Lorazepam (Ativan) 0.5 mg IVP Q6H PRN; Protocol PRN Reason: Symptoms of alcohol withdrawl Multivitamins/Minerals (Therapeutic-M Tab) 1 tab PO DAILY [facility] Ondansetron HCl (Zofran Inj) 4 mg IVP Q4H PRN PRN Reason: Nausea/Vomiting Pantoprazole Sodium (Protonix Inj) 40 mg IVP Q12 [facility] Last Admin: 01/18/18 10:48 Dose: 40 mg Thiamine HCl (Vitamin B1 Tab) 100 mg PO DAILY [facility] Physical Exam - Constitutional Appears: Non-toxic, No Acute Distress - Head Exam Head Exam: ATRAUMATIC, NORMAL INSPECTION, NORMOCEPHALIC - Eye Exam Eye Exam: EOMI, PERRL, Scleral icterus - ENT Exam ENT Exam: Mucous Membranes Dry, Normal Exam - Neck Exam Neck exam: Positive for: Full Rom, Normal Inspection - Respiratory Exam Respiratory Exam: Clear to Auscultation Bilateral, NORMAL BREATHING PATTERN - Cardiovascular Exam Cardiovascular Exam: REGULAR RHYTHM, +S1, +S2 - GI/Abdominal Exam GI & Abdominal Exam: Normal Bowel Sounds, Soft. absent: Diminished Bowel Sounds , Distended, Guarding, Organomegaly, Tenderness - Extremities Exam Extremities exam: Positive for: full ROM, normal inspection - Back Exam Back exam: NORMAL INSPECTION - Neurological Exam Neurological exam: Alert, Oriented x3 - Psychiatric Exam Psychiatric exam: Normal Affect, Normal Mood - Skin Skin Exam: Intact, Warm Additional comments: Jaundice Results - Vital Signs Recent Vital Signs: Last Vital Signs Temp 99.5 F 01/18/18 07:53 Pulse 85 01/18/18 07:53 Resp 20 01/18/18 07:53 BP 143/76 01/18/18 07:53 Pulse Ox 96 01/18/18 07:53 - Labs Result Diagrams: 01/18/18 06:50 01/18/18 06:50 Assessment & Plan - Assessment and Plan (Free Text) Assessment: This is a 72yM presenting with abdominal pain. 1. Elevated LFTs 2. Jaundice 3. Leukocytosis 4. Osteomyelitis of spine 5. Hx of Alcohol abuse Plan: -Continue supportive care with pain control and anti-emetics - Imaging reviewed abdominal US/CT showed cholelithiasis, no CBD dilation - Recommend MRCP to r/o choledocholithiasis for possible cholangitis - Blood, urine and stool cultures ordered - IV abx Zosyn - NPO diet for possible EUS/ ERCP tomorrow - r/o osteomyelitis in spine as this can be causing fevers and WBC - Transaminitis maybe multifactorial with hx of etoh abuse - Hepatitis panel and autoimmune workup ordered - Surgery ordered HIDA scan - Will continue to follow closely for possibel ERCP tomorrow, keep pt NPO after midnight and repeat labs in am <Renata Valdez - Last Filed: 01/18/18 13:56> Meds - Medications Medications: Current Medications Folic Acid (Folic Acid) 1 mg PO DAILY [facility] Last Admin: 01/18/18 12:34 Dose: 1 mg Sodium Chloride (Sodium Chloride 0.9%) 1,000 mls @ 100 mls/hr IV .Q10H [facility] Last Admin: 01/18/18 12:38 Dose: 100 mls/hr Piperacillin Sod/Tazobactam Sod (Zosyn 3.375 In Ns 100ml) 100 mls @ 200 mls/hr IVPB Q6 [facility] PRN Reason: Protocol Stop: 01/25/18 00:16 Last Admin: 01/18/18 12:35 Dose: 200 mls/hr Vancomycin HCl (Vancomycin 1gm) 1 gm in 250 mls @ 167 mls/hr IVPB Q12H [facility] PRN Reason: Protocol Last Admin: 01/18/18 10:46 Dose: 167 mls/hr Ibuprofen (Motrin Tab) 400 mg PO Q4H PRN PRN Reason: Fever >100.4 F Insulin Human Lispro (Humalog Med) 0 units SC Q6 [facility] PRN Reason: Protocol Last Admin: 01/18/18 12:15 Dose: Not Given Lorazepam (Ativan) 0.5 mg IVP Q6H PRN; Protocol PRN Reason: Symptoms of alcohol withdrawl Multivitamins/Minerals (Therapeutic-M Tab) 1 tab PO DAILY [facility] Ondansetron HCl (Zofran Inj) 4 mg IVP Q4H PRN PRN Reason: Nausea/Vomiting Pantoprazole Sodium (Protonix Inj) 40 mg IVP Q12 [facility] Last Admin: 01/18/18 10:48 Dose: 40 mg Thiamine HCl (Vitamin B1 Tab) 100 mg PO DAILY [facility] Last Admin: 01/18/18 12:34 Dose: 100 mg Results - Vital Signs Recent Vital Signs: Last Vital Signs Temp 98.1 F 01/18/18 12:20 Pulse 71 01/18/18 12:20 Resp 16 01/18/18 12:20 BP 116/62 01/18/18 12:20 Pulse Ox 98 01/18/18 12:20 - Labs Result Diagrams: 01/18/18 06:50 01/18/18 06:50 Attending/Attestation - Attestation I have personally seen and examined this patient.: Yes I have fully participated in the care of the patient.: Yes I have reviewed all pertinent clinical information: Yes Notes (Text): 01/18/18 13:53 This is a 72 year old M presenting with abdominal pain and jaundice and fever with osteomyelitis of spine and history of significant alcohol abuse. Sonogram shows no CBD dilattaion. MRCP pending. Will benefit from panculture. Continue antibiotics. LFT maybe due to multifactorial- sepsis, alcohol and cholelithaisis. Will monitor daily INR and LFT and fever and wbc curve. Follow HIDA scan. Rest of plan after above imaging
[2018-01-18 12:43] LABS: IRON 34 ug/dL (45-180)
[2018-01-18 12:52] LABS: % IRON SATURATION 11 % (20-55); TOTAL IRON BINDING CAPACITY 308 ug/dL (261-462)
[2018-01-18] MEDS ORDERED: Gadodiamide 287 MG/ML VIAL (15ML) IV ONE (13:59)
[2018-01-18 14:06] LABS: HEPATITIS B SURFACE AG Negative (NEGATIVE)
[2018-01-18 14:11] LABS: HEPATITIS A IGM NEGATIVE (NEGATIVE); HEPATITIS B CORE AB NEGATIVE (NEGATIVE)
[2018-01-18 14:23] LABS: HEPATITIS C ANTIBODY NEGATIVE (NEGATIVE)
--- NOTE | 2018-01-18 15:22 | MRI ---
PROCEDURE: MR LUMBAR SPINE WITH AND WITHOUT CONTRAST HISTORY: lytic lesions COMPARISON: CT of the abdomen 01/17/2018 TECHNIQUE: Multiecho multiplanar sequences were performed through the lumbar spine with and without the use of intravenous contrast. FINDINGS: Normal lumbar lordosis. There is a large Schmorl's node involving the inferior endplate of L4. Small Schmorl's nodes are seen at L1 and L2. There are no lytic lesions Marrow signal unremarkable. Conus medullaris unremarkable at the level of T12 Paraspinal soft tissues are unremarkable. No abnormal enhancement. T12-L1: No disc herniation, spinal canal stenosis or neural foraminal narrowing. L1-2: No disc herniation, spinal canal stenosis or neural foraminal narrowing. L2-3: No disc herniation, spinal canal stenosis or neural foraminal narrowing. L3-4: No disc herniation, spinal canal stenosis or neural foraminal narrowing. L4-5: Mild disc bulge L5-S1: Moderate disc bulge. Bilateral foraminal stenosis OTHER FINDINGS: None. IMPRESSION: Multiple Schmorl's nodes. Large Schmorl's node along the inferior endplate of L4. The study is otherwise unremarkable with no evidence of lytic or enhancing lesions.
--- NOTE | 2018-01-18 15:30 | MRI ---
PROCEDURE: MRI Abdomen with and without contrast plus MRCP HISTORY: Possible cholangitis COMPARISON: None available. TECHNIQUE: Multisequence, multiplanar MR images of the abdomen with and without gadolinium contrast enhancement. 15 cc of Omniscan FINDINGS: LIVER: Unremarkable. GALLBLADDER: Small gallstones are seen. The common duct is normal in caliber measuring 4 mm. There are no common duct stones. There is no evidence of abnormal enhancement to suggest cholangitis SPLEEN: Unremarkable. PANCREAS: Unremarkable. ADRENALS: Unremarkable. KIDNEYS: Unremarkable. AORTA: No aneurysm. ASCITES: None. PERITONEUM: Unremarkable. LYMPH NODES: Unremarkable. OTHER FINDINGS: None. IMPRESSION: Small gallstones. No evidence of common duct stones or obstruction. No evidence of abnormal enhancement to suggest cholangitis
--- NOTE | 2018-01-18 15:43 | NM ---
PROCEDURE: Nuclear Medicine Hepatobiliary Scan HISTORY: cholecystitis, r/o cholangitis COMPARISON: MRCP same day TECHNIQUE: 6.8 mCi of technetium 99m Mebrofenin was administered intravenously. Planar images of the abdomen were obtained at 5 min intervals to 60 mins. Delayed images were also obtained. FINDINGS: LIVER: Timely and homogenous uptake. There is no visualization of the common duct, gallbladder or small bowel even on 5 hour delayed images. Findings are most consistent with hepatocellular disease. IMPRESSION: No excretion of radionuclide into the biliary system. 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
[2018-01-18 16:39] LABS: BASO # 0.08 K/mm3 (0.0-2.0); BASO % 0.3 % (0.0-3.0); EOS # 0.1 (0.0-0.7); EOS % 0.4 % (1.5-5.0); GRAN # 23.81 (1.4-6.5); GRAN % 84.8 % (50.0-68.0); HEMOGLOBIN 10.8 g/dL (14.0-18.0); LYMPH # 1.2 (1.2-3.4); LYMPH % 4.3 % (22.0-35.0); MEAN CELL VOLUME 82.5 fl (80.0-105.0); MEAN CORPUSCULAR HEMOGLOBIN 30.5 pg (25.0-35.0); MEAN PLATELET VOLUME 10.3 fl (7.0-11.0); MONO # 2.9 (0.1-0.6); MONO % 10.2 % (1.0-6.0); RBC 3.54 10^6/uL (3.5-6.1); RED CELL DISTRIBUTION WIDTH 19.3 % (11.5-14.5)
[2018-01-18 16:45] LABS: URINE APPEARANCE TURBID (CLEAR); URINE BILIRUBIN NEGATIVE (NEGATIVE); URINE COLOR RED (YELLOW); URINE GLUCOSE (UA) NEGATIVE (NEGATIVE)
[2018-01-18 16:46] LABS: PH,URINE 7.5 (4.7-8.0); URINE BLOOD LARGE (NEGATIVE); URINE PROTEIN 2+ mg/dL (<30 mg/dL); URINE UROBILINOGEN Normal E.U./dL (<1 E.U./dL)
--- NOTE | 2018-01-18 16:47 | CP.PCM.CON ---
History of Present Illness - History of Present Illness History of Present Illness: 72 year old male with PMH of DM, HTN, dyslipidemia, GERD, came in to [facility] complaining of right upper quadrant pain for about a day prior to admission, associated with some nausea and anorexia. He denies vomiting, no diarrhea, no headache or dizziness, no chest pain, no SOB, no cough or colds, no sore throat , no dysuria. The patient was also noted to have yellowing of eyes. In the ED, the patient is noted to have fevers and his liver enzymes were noted to be elevated as well as bilirubin levels. Infectious Diseases consult is requested to further evaluate and manage. 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) Hx Cataracts: No - RENAL Hx Chronic Kidney Disease: No - ENDOCRINE/METABOLIC Hx Endocrine Disorders: Yes Hx Diabetes Mellitus Type 2: Yes - HEMATOLOGICAL/ONCOLOGICAL Hx Blood Disorders: No - INTEGUMENTARY Hx Dermatological Problems: No - MUSCULOSKELETAL/RHEUMATOLOGICAL Hx Musculoskeletal Disorders: No - GASTROINTESTINAL Hx Gastrointestinal Disorders: No - GENITOURINARY/GYNECOLOGICAL Hx Genitourinary Disorders: No - PSYCHIATRIC Hx Psychophysiologic Disorder: No Hx Substance Use: No - SURGICAL HISTORY Hx Eye Surgery: Yes (LT EYE) Other/Comment: LEFT EYE SURGERY WHEN HE WAS A BABY - ANESTHESIA Hx Anesthesia: Yes Hx Anesthesia Reactions: No Hx Malignant Hyperthermia: No Meds Allergies/Adverse Reactions: Allergies Allergy/AdvReac Type Severity Reaction Status Date / Time No Known Allergies Allergy Verified 05/04/17 14:46 - Medications Medications: Current Medications Atorvastatin Calcium (Lipitor) 10 mg PO DAILY [facility] Ceftriaxone Sodium (Rocephin 1 Gram Ivpb) 1 gm in 100 mls @ 100 mls/hr IVPB DAILY [facility] PRN Reason: Protocol Sodium Chloride (Sodium Chloride 0.9%) 1,000 mls @ 100 mls/hr IV .Q10H [facility] Ciprofloxacin (Cipro 400mg/200ml Dsw) 400 mg in 200 mls @ 133.3 mls/hr IVPB Q12 [facility] PRN Reason: Protocol Stop: 01/18/18 11:31 Metronidazole (Flagyl) 500 mg in 100 mls @ 100 mls/hr IVPB Q8 [facility] PRN Reason: Protocol Ibuprofen (Motrin Tab) 400 mg PO Q6H PRN PRN Reason: Fever >100.4 F Insulin Human Lispro (Humalog Med) 0 units SC Q6 [facility] PRN Reason: Protocol Ondansetron HCl (Zofran Inj) 4 mg IVP Q4H PRN PRN Reason: Nausea/Vomiting Pantoprazole Sodium (Protonix Inj) 40 mg IVP Q12 [facility] Physical Exam - Constitutional Appears: Chronically Ill - Head Exam Head Exam: NORMAL INSPECTION - Eye Exam Eye Exam: Scleral icterus - ENT Exam ENT Exam: Mucous Membranes Moist - Respiratory Exam Respiratory Exam: Decreased Breath Sounds - Cardiovascular Exam Cardiovascular Exam: +S1, +S2 - GI/Abdominal Exam GI & Abdominal Exam: Guarding, Soft, Tenderness (right upper quadrant area). absent: Distended, Firm, Rebound, Rigid Results - Vital Signs Recent Vital Signs: Last Vital Signs Temp 102.4 F H 01/17/18 21:40 Pulse 108 H 01/17/18 23:10 Resp 20 01/17/18 23:10 BP 142/72 01/17/18 23:10 Pulse Ox 99 01/17/18 23:10 - Labs Result Diagrams: 01/18/18 06:50 01/18/18 06:50 Assessment & Plan - Assessment and Plan (Free Text) Plan: Assessment Consider sepsis due to acute biliary tract disease, R/O acute cholangitis R.O hepatitis DM HTN dyslipidemia GERD Plan Started Vancomycin and Zosyn pending blood cx; follow up MRCP, HIDA Scan GI on board follow up hepatitis profile will monitor clinically
[2018-01-18 17:00] LABS: WHITE BLOOD COUNT 28.1 10^3/ul (4.5-11.0)
[2018-01-18 17:02] LABS: URINE BACTERIA FEW (NEG); URINE LEUKOCYTE ESTERASE LARGE Leu/uL (NEGATIVE); URINE RBC TNTC /hpf (0-2); URINE WBC 15 - 20 /hpf (0-6)
[2018-01-19] MEDS: Insulin Lispro (humaLOG) MEDIUM Coverage SC SCH ×5 (01:02→23:55)
[2018-01-19] MEDS: Sodium Chloride 0.9% 1,000 ML IV SCH ×2 (05:09→22:15)
[2018-01-19] MEDS: Piperacillin/Tazobact 3.375 gm 100 ML IVPB SCH ×3 (05:12→17:44)
[2018-01-19 06:51] LABS: EOS # 0.6 (0.0-0.7); GRAN % 76.2 % (50.0-68.0); MONO % 10.8 % (1.0-6.0)
[2018-01-19 07:05] LABS: INR 1.25 (0.93-1.08); PROTHROMBIN TIME 14.4 SECONDS (9.4-12.5)
[2018-01-19 07:45] LABS: BASO # 0.09 K/mm3 (0.0-2.0); BASO % 0.4 % (0.0-3.0); EOS % 3.1 % (1.5-5.0); GRAN # 15.91 (1.4-6.5); HEMOGLOBIN 10.1 g/dL (14.0-18.0); LYMPH % 9.5 % (22.0-35.0); MEAN CELL VOLUME 80.6 fl (80.0-105.0); MEAN CORPUSCULAR HEMOGLOBIN 29.7 pg (25.0-35.0); MEAN CORPUSCULAR HGB CONC 36.9 g/dl (31.0-37.0); MEAN PLATELET VOLUME 11.4 fl (7.0-11.0); MONO # 2.3 (0.1-0.6); RBC 3.4 10^6/uL (3.5-6.1); RED CELL DISTRIBUTION WIDTH 18.9 % (11.5-14.5); WHITE BLOOD COUNT 20.9 10^3/ul (4.5-11.0)
--- NOTE | 2018-01-19 08:33 | CP.PCM.PN ---
<Nina Heredia - Last Filed: 01/19/18 08:35> Subjective - Date & Time of Evaluation Date of Evaluation: 01/19/18 Time of Evaluation: 07:00 - Subjective Subjective: GI Fellow PGY 4 Progress Note Pt seen and evaluated at bedside, pt doing okay with no abdominal pain, N/V, F/ C. Pt reports hx of drinking alcohol heavily since he was young but is not very forthcoming about how much he was drinking, reports last drink was in October. Denies any prior hospitalizations for liver disease or jaundice. ROS: A 12pt ROS was negative except as above. Objective - Vital Signs/Intake and Output Vital Signs (last 24 hours): Temp Pulse Resp BP Pulse Ox 97.7 F 72 19 122/78 95 01/19/18 06:00 01/19/18 06:00 01/19/18 06:00 01/19/18 06:00 01/19/18 06:00 Intake and Output: 01/19/18 01/19/18 06:59 18:59 Intake Total 1470 Output Total 1100 Balance 370 - Medications Medications: Current Medications Folic Acid (Folic Acid) 1 mg PO DAILY [facility] Last Admin: 01/18/18 12:34 Dose: 1 mg Sodium Chloride (Sodium Chloride 0.9%) 1,000 mls @ 100 mls/hr IV .Q10H [facility] Last Admin: 01/19/18 05:09 Dose: Not Given Piperacillin Sod/Tazobactam Sod (Zosyn 3.375 In Ns 100ml) 100 mls @ 200 mls/hr IVPB Q6 [facility] PRN Reason: Protocol Stop: 01/25/18 00:16 Last Admin: 01/19/18 05:12 Dose: 200 mls/hr Vancomycin HCl (Vancomycin 1gm) 1 gm in 250 mls @ 167 mls/hr IVPB Q12H [facility] PRN Reason: Protocol Last Admin: 01/18/18 21:18 Dose: 167 mls/hr Ibuprofen (Motrin Tab) 400 mg PO Q4H PRN PRN Reason: Fever >100.4 F Last Admin: 01/19/18 01:13 Dose: 400 mg Insulin Human Lispro (Humalog Med) 0 units SC Q6 [facility] PRN Reason: Protocol Last Admin: 01/19/18 05:41 Dose: Not Given Lorazepam (Ativan) 0.5 mg IVP Q6H PRN; Protocol PRN Reason: Symptoms of alcohol withdrawl Multivitamins/Minerals (Therapeutic-M Tab) 1 tab PO DAILY [facility] Ondansetron HCl (Zofran Inj) 4 mg IVP Q4H PRN PRN Reason: Nausea/Vomiting Pantoprazole Sodium (Protonix Inj) 40 mg IVP Q12 [facility] Last Admin: 01/18/18 21:18 Dose: 40 mg Thiamine HCl (Vitamin B1 Tab) 100 mg PO DAILY [facility] Last Admin: 01/18/18 12:34 Dose: 100 mg - Labs Labs: 01/19/18 06:00 PT 14.4 SECONDS (9.4-12.5) H 01/19/18 06:00 INR 1.25 (0.93-1.08) H 01/19/18 06:00 - Constitutional Appears: Non-toxic, No Acute Distress - Head Exam Head Exam: ATRAUMATIC, NORMAL INSPECTION, NORMOCEPHALIC - Eye Exam Eye Exam: EOMI, PERRL, Scleral icterus Pupil Exam: PERRL - ENT Exam ENT Exam: Mucous Membranes Moist, Normal Exam - Neck Exam Neck Exam: Full ROM, Normal Inspection - Respiratory Exam Respiratory Exam: Clear to Ausculation Bilateral, NORMAL BREATHING PATTERN - Cardiovascular Exam Cardiovascular Exam: REGULAR RHYTHM, +S1, +S2 - GI/Abdominal Exam GI & Abdominal Exam: Soft, Normal Bowel Sounds. absent: Distended, Guarding, Tenderness, Organomegaly - Rectal Exam Rectal Exam: Deferred - Extremities Exam Extremities Exam: Full ROM, Normal Inspection - Back Exam Back Exam: NORMAL INSPECTION - Neurological Exam Neurological Exam: Alert, Awake, Oriented x3 - Psychiatric Exam Psychiatric exam: Normal Affect, Normal Mood - Skin Skin Exam: Dry, Intact, Normal Color, Warm Assessment and Plan - Assessment and Plan (Free Text) Assessment: This is a 72yM presenting with abdominal pain. 1. Alcoholic hepatitis DF 19.9 (12/21/17) 2. Elevated LFTs from hepatocellular disease 3. Jaundice 4. Leukocytosis 5. Hx of Alcohol abuse Plan: -Continue supportive care with pain control and anti-emetics - Imaging reviewed MRCP showed cholelithiasis, no CBD dilation, no CBD stone, no cholangitis - HIDA scan with uptake in liver suggestive of hepatocellular disease - Transaminitis likely from alcoholic hepatitis and hx of retirement etoh abuse - Continue to monitor LFTs, INR daily, labs pending today - Alcoholic Hepatitis with Discriminate factor >32 is an indication to start prednisolone or pentoxyphilline: DF 19.9 (01/18/18) - Hepatitis panel negative and autoimmune workup pending - No plan for ERCP as no cholangitis suspected - Blood cx negative - IV abx per ID - Diet as tolerated - No osteomyelitis in spine on imaging - Alcohol cessation counseling provided to pt - Further medical management per primary team - Will continue to follow closely <Mati Soctt - Last Filed: 01/19/18 08:51> Objective - Vital Signs/Intake and Output Vital Signs (last 24 hours): Temp Pulse Resp BP Pulse Ox 97.7 F 72 19 122/78 95 01/19/18 06:00 01/19/18 06:00 01/19/18 06:00 01/19/18 06:00 01/19/18 06:00 Intake and Output: 01/19/18 01/19/18 06:59 18:59 Intake Total 1470 Output Total 1100 Balance 370 - Medications Medications: Current Medications Folic Acid (Folic Acid) 1 mg PO DAILY [facility] Last Admin: 01/18/18 12:34 Dose: 1 mg Sodium Chloride (Sodium Chloride 0.9%) 1,000 mls @ 100 mls/hr IV .Q10H [facility] Last Admin: 01/19/18 05:09 Dose: Not Given Piperacillin Sod/Tazobactam Sod (Zosyn 3.375 In Ns 100ml) 100 mls @ 200 mls/hr IVPB Q6 [facility] PRN Reason: Protocol Stop: 01/25/18 00:16 Last Admin: 01/19/18 05:12 Dose: 200 mls/hr Vancomycin HCl (Vancomycin 1gm) 1 gm in 250 mls @ 167 mls/hr IVPB Q12H [facility] PRN Reason: Protocol Last Admin: 01/18/18 21:18 Dose: 167 mls/hr Ibuprofen (Motrin Tab) 400 mg PO Q4H PRN PRN Reason: Fever >100.4 F Last Admin: 01/19/18 01:13 Dose: 400 mg Insulin Human Lispro (Humalog Med) 0 units SC Q6 [facility] PRN Reason: Protocol Last Admin: 01/19/18 05:41 Dose: Not Given Lorazepam (Ativan) 0.5 mg IVP Q6H PRN; Protocol PRN Reason: Symptoms of alcohol withdrawl Multivitamins/Minerals (Therapeutic-M Tab) 1 tab PO DAILY [facility] Ondansetron HCl (Zofran Inj) 4 mg IVP Q4H PRN PRN Reason: Nausea/Vomiting Pantoprazole Sodium (Protonix Inj) 40 mg IVP Q12 [facility] Last Admin: 01/18/18 21:18 Dose: 40 mg Thiamine HCl (Vitamin B1 Tab) 100 mg PO DAILY [facility] Last Admin: 01/18/18 12:34 Dose: 100 mg - Labs Labs: 01/19/18 06:00 PT 14.4 SECONDS (9.4-12.5) H 01/19/18 06:00 INR 1.25 (0.93-1.08) H 01/19/18 06:00 Attending/Attestation - Attestation I have personally seen and examined this patient.: Yes I have fully participated in the care of the patient.: Yes I have reviewed all pertinent clinical information, including history, physical exam and plan: Yes Notes (Text): 01/19/18 08:50 72 year old male with h/o etoh abuse admitted with jaundice, found to have cholelithiasis. HIDA scan suggestive of hepatocellular dysfunction. MRCP negative for choledocholithiasis. Overall clinical presentation is consistent with alcoholic hepatitis. Monitor LFT/INR today. Recalc Rudy PICKERING today. Advance diet as tolerated. No indication for ERCP. Advised strict ETOH abstinence.
[2018-01-19 09:20] LABS: ALB/GLOB RATIO 0.9 (1.1-1.8); ALBUMIN 3.1 g/dL (3.0-4.8); CALCIUM 8.7 mg/dL (8.4-10.5)
--- NOTE | 2018-01-19 10:19 | CP.PCM.PN ---
Subjective - Date & Time of Evaluation Date of Evaluation: 01/19/18 Time of Evaluation: 07:00 - Subjective Subjective: Surgery: Dr. Iqbal Patient reports feeling better today. Denies abdominal pain, n/v. Patient febrile overnight to Tmax of 100.6. Denies diarrhea. Reports appetite. Objective - Vital Signs/Intake and Output Vital Signs (last 24 hours): Temp Pulse Resp BP Pulse Ox 97.7 F 72 19 122/78 95 01/19/18 06:00 01/19/18 06:00 01/19/18 06:00 01/19/18 06:00 01/19/18 06:00 Intake and Output: 01/19/18 01/19/18 06:59 18:59 Intake Total 1470 Output Total 1100 Balance 370 - Medications Medications: Current Medications Folic Acid (Folic Acid) 1 mg PO DAILY [facility] Last Admin: 01/18/18 12:34 Dose: 1 mg Sodium Chloride (Sodium Chloride 0.9%) 1,000 mls @ 100 mls/hr IV .Q10H [facility] Last Admin: 01/19/18 05:09 Dose: Not Given Piperacillin Sod/Tazobactam Sod (Zosyn 3.375 In Ns 100ml) 100 mls @ 200 mls/hr IVPB Q6 [facility] PRN Reason: Protocol Stop: 01/25/18 00:16 Last Admin: 01/19/18 05:12 Dose: 200 mls/hr Vancomycin HCl (Vancomycin 1gm) 1 gm in 250 mls @ 167 mls/hr IVPB Q12H [facility] PRN Reason: Protocol Last Admin: 01/18/18 21:18 Dose: 167 mls/hr Ibuprofen (Motrin Tab) 400 mg PO Q4H PRN PRN Reason: Fever >100.4 F Last Admin: 01/19/18 01:13 Dose: 400 mg Insulin Human Lispro (Humalog Med) 0 units SC Q6 [facility] PRN Reason: Protocol Last Admin: 01/19/18 05:41 Dose: Not Given Lorazepam (Ativan) 0.5 mg IVP Q6H PRN; Protocol PRN Reason: Symptoms of alcohol withdrawl Multivitamins/Minerals (Therapeutic-M Tab) 1 tab PO DAILY [facility] Ondansetron HCl (Zofran Inj) 4 mg IVP Q4H PRN PRN Reason: Nausea/Vomiting Pantoprazole Sodium (Protonix Inj) 40 mg IVP Q12 [facility] Last Admin: 01/18/18 21:18 Dose: 40 mg Thiamine HCl (Vitamin B1 Tab) 100 mg PO DAILY [facility] Last Admin: 01/18/18 12:34 Dose: 100 mg - Labs Labs: 01/19/18 06:00 01/19/18 07:00 PT 14.4 SECONDS (9.4-12.5) H 01/19/18 06:00 INR 1.25 (0.93-1.08) H 01/19/18 06:00 - Constitutional Appears: Non-toxic, No Acute Distress - Head Exam Head Exam: ATRAUMATIC, NORMOCEPHALIC - Eye Exam Eye Exam: EOMI - ENT Exam ENT Exam: Mucous Membranes Moist - Respiratory Exam Respiratory Exam: NORMAL BREATHING PATTERN. absent: Respiratory Distress - Cardiovascular Exam Cardiovascular Exam: REGULAR RHYTHM. absent: Tachycardia - GI/Abdominal Exam GI & Abdominal Exam: Soft. absent: Distended, Guarding, Tenderness, Rebound - Neurological Exam Neurological Exam: Alert, Awake - Skin Skin Exam: Dry, Warm Additional comments: Jaundice Assessment and Plan - Assessment and Plan (Free Text) Assessment: 72 y/o male w/ sepsis possibly 2/2 colitis, resolving, with persistent elevated liver enzymes 2/2 intrahepatic liver disease Plan: -MRCP and HIDA negative for choledocholithiasis or cholecystitis, appears to be intrahepatic disease -GI reports no indication for ERCP at this time -cont abx -ok for diet from surgical standpoint -supportive care -medical management per primary team -further recs per GI -no indication for acute surgical intervention at this time -further recs per Dr. Iqbal [facility] PGY3
[2018-01-19] MEDS: Vancomycin 1gm in NS 250ml 1 GM/250 ML BAG IVPB SCH ×2 (11:22→22:12)
[2018-01-19] MEDS: Multivitamin With Minerals Tab PO SCH (11:23)
[2018-01-19 12:41] LABS: IMMUNOGLOBULIN A 283.1 mg/dL (70.0-400.0); IMMUNOGLOBULIN G 1417.2 mg/dL (700.0-1600.0); IMMUNOGLOBULIN M 68.6 mg/dL (40.0-230.0)
--- NOTE | 2018-01-19 16:19 | CP.PCM.PN ---
<Lesvia Mcdermott - Last Filed: 01/19/18 16:25> Subjective - Date & Time of Evaluation Date of Evaluation: 01/19/18 Time of Evaluation: 16:17 - Subjective Subjective: Patient seen and examined at bedside. Patient denies any abdominal pain. Nurse reports no events overnight. Objective - Vital Signs/Intake and Output Vital Signs (last 24 hours): Temp Pulse Resp BP Pulse Ox 97.7 F 56 L 19 151/76 H 95 01/19/18 12:00 01/19/18 12:00 01/19/18 12:00 01/19/18 12:00 01/19/18 06:00 Intake and Output: 01/19/18 01/19/18 06:59 18:59 Intake Total 1470 Output Total 1100 Balance 370 - Medications Medications: Current Medications Folic Acid (Folic Acid) 1 mg PO DAILY [facility] Last Admin: 01/19/18 11:22 Dose: 1 mg Sodium Chloride (Sodium Chloride 0.9%) 1,000 mls @ 100 mls/hr IV .Q10H [facility] Last Admin: 01/19/18 05:09 Dose: Not Given Piperacillin Sod/Tazobactam Sod (Zosyn 3.375 In Ns 100ml) 100 mls @ 200 mls/hr IVPB Q6 [facility] PRN Reason: Protocol Stop: 01/25/18 00:16 Last Admin: 01/19/18 14:07 Dose: 200 mls/hr Vancomycin HCl (Vancomycin 1gm) 1 gm in 250 mls @ 167 mls/hr IVPB Q12H [facility] PRN Reason: Protocol Last Admin: 01/19/18 11:22 Dose: 167 mls/hr Ibuprofen (Motrin Tab) 400 mg PO Q4H PRN PRN Reason: Fever >100.4 F Last Admin: 01/19/18 01:13 Dose: 400 mg Insulin Human Lispro (Humalog Med) 0 units SC Q6 [facility] PRN Reason: Protocol Last Admin: 01/19/18 12:11 Dose: Not Given Lorazepam (Ativan) 0.5 mg IVP Q6H PRN; Protocol PRN Reason: Symptoms of alcohol withdrawl Multivitamins/Minerals (Therapeutic-M Tab) 1 tab PO DAILY [facility] Last Admin: 01/19/18 11:23 Dose: 1 tab Ondansetron HCl (Zofran Inj) 4 mg IVP Q4H PRN PRN Reason: Nausea/Vomiting Pantoprazole Sodium (Protonix Inj) 40 mg IVP Q12 [facility] Last Admin: 01/19/18 11:24 Dose: 40 mg Thiamine HCl (Vitamin B1 Tab) 100 mg PO DAILY [facility] Last Admin: 01/19/18 11:23 Dose: 100 mg - Labs Labs: 01/19/18 06:00 01/19/18 07:00 PT 14.4 SECONDS (9.4-12.5) H 01/19/18 06:00 INR 1.25 (0.93-1.08) H 01/19/18 06:00 - Constitutional Appears: Non-toxic, No Acute Distress - Head Exam Head Exam: ATRAUMATIC, NORMOCEPHALIC - Eye Exam Eye Exam: Scleral icterus - ENT Exam ENT Exam: Mucous Membranes Dry - Neck Exam Neck Exam: Normal Inspection - Respiratory Exam Respiratory Exam: Clear to Ausculation Bilateral, NORMAL BREATHING PATTERN - Cardiovascular Exam Cardiovascular Exam: RRR, +S1, +S2 - GI/Abdominal Exam GI & Abdominal Exam: Soft. absent: Guarding, Tenderness, Rebound - Extremities Exam Extremities Exam: Normal Inspection. absent: Pedal Edema - Neurological Exam Neurological Exam: Alert, Awake, Oriented x3 - Psychiatric Exam Psychiatric exam: Normal Affect, Normal Mood - Skin Additional comments: jaundiced Assessment and Plan - Assessment and Plan (Free Text) Assessment: 72 year old with a past medical history of alcoholism, DM II, GERD, and hypertension who presents with one day of RUQ pain likely secondary to alcoholic liver disease. Plan: 1) RUQ pain, leukocytosis, fever, jaundice in a patient without a spleen - Advance diet as tolerated - Zofran 4 mg PRN and Protonix 40 mg IVP q12h - Surgery and GI recommendations appreciated - Motrin for fever - Vancomycin and Zosyn per ID, appreciate recommendations. - MRCP and HIDA suggest hepatocellular disease and no evidence of cholangitis; patient may benefit from cholecystectomy as an outpatient - Hepatitis panel negative 2) Alcoholic/malnutrition - MV, Folic acid, and thiamine - Alcohol cessation counseling - Ativan 0.5 PRN for alcohol withdrawal symptoms 3) Hypertension - Holding Lisinopril in setting of Cr of 1.5 and blood pressure fairly well- controlled 4) DM II - Insulin sliding scale Case seen and discussed with attending physician, Dr. Klein <Samantha Klein - Last Filed: 01/21/18 12:00> Objective - Vital Signs/Intake and Output Vital Signs (last 24 hours): Temp Pulse Resp BP Pulse Ox 98.9 F 69 20 163/88 H 96 01/21/18 08:47 01/21/18 08:47 01/21/18 08:47 01/21/18 08:47 01/21/18 08:47 Intake and Output: 01/21/18 01/21/18 06:59 18:59 Intake Total 900 Balance 900 - Medications Medications: Current Medications Folic Acid (Folic Acid) 1 mg PO DAILY [facility] Last Admin: 01/21/18 10:49 Dose: 1 mg Sodium Chloride (Sodium Chloride 0.9%) 1,000 mls @ 100 mls/hr IV .Q10H [facility] Last Admin: 01/20/18 21:33 Dose: 100 mls/hr Insulin Human Lispro (Humalog Med) 0 units SC ACHS [facility] PRN Reason: Protocol Last Admin: 01/21/18 11:49 Dose: 1 units Multivitamins/Minerals (Therapeutic-M Tab) 1 tab PO DAILY [facility] Last Admin: 01/21/18 10:49 Dose: 1 tab Ondansetron HCl (Zofran Inj) 4 mg IVP Q4H PRN PRN Reason: Nausea/Vomiting Pantoprazole Sodium (Protonix Ec Tab) 40 mg PO Q12 [facility] Last Admin: 01/21/18 10:49 Dose: 40 mg Pentoxifylline (Pentoxil) 400 mg PO TID [facility] Last Admin: 01/21/18 10:49 Dose: 400 mg Thiamine HCl (Vitamin B1 Tab) 100 mg PO DAILY [facility] Last Admin: 01/21/18 10:49 Dose: 100 mg - Labs Labs: 01/21/18 06:30 01/21/18 06:30 PT 14.4 SECONDS (9.4-12.5) H 01/19/18 06:00 INR 1.25 (0.93-1.08) H 01/19/18 06:00 Attending/Attestation - Attestation I have personally seen and examined this patient.: Yes I have fully participated in the care of the patient.: Yes I have reviewed all pertinent clinical information, including history, physical exam and plan: Yes Notes (Text): 01/21/18 11:56 Medical record note made by the resident after discussion with my direction and input after the patient was personally seen and examined by me. I have reviewed the chart and agree that the record accurately reflects by personal performance of the history, physical exam, data review, and medical decision-making, in the course for the patient. I have also personally directed the plan of care. 72 year old male with PMH of alcohol abuse was admitted with abdominal pain , fever and jaundice, found to have cholelithiasis. HIDA scan suggestive of hepatocellular dysfunction. MRCP negative for choledocholithiasis. Patient is feeling better today, AST.ALT and alkaline phosphatase are improving but TB is still high.We will Monitor LFT/INR today. Advance diet as tolerated. No indication for ERCP. Advised strict ETOH abstinence.
--- NOTE | 2018-01-19 16:39 | CP.PCM.PN ---
Subjective - Date & Time of Evaluation Date of Evaluation: 01/19/18 Time of Evaluation: 10:30 - Subjective Subjective: No fevers, not in distress, afebrile. No abdominal pain, still jaundiced. Objective - Vital Signs/Intake and Output Vital Signs (last 24 hours): Temp Pulse Resp BP Pulse Ox 97.7 F 72 19 122/78 95 01/19/18 06:00 01/19/18 06:00 01/19/18 06:00 01/19/18 06:00 01/19/18 06:00 Intake and Output: 01/19/18 01/19/18 06:59 18:59 Intake Total 1470 Output Total 1100 Balance 370 - Medications Medications: Current Medications Folic Acid (Folic Acid) 1 mg PO DAILY [facility] Last Admin: 01/18/18 12:34 Dose: 1 mg Sodium Chloride (Sodium Chloride 0.9%) 1,000 mls @ 100 mls/hr IV .Q10H [facility] Last Admin: 01/19/18 05:09 Dose: Not Given Piperacillin Sod/Tazobactam Sod (Zosyn 3.375 In Ns 100ml) 100 mls @ 200 mls/hr IVPB Q6 [facility] PRN Reason: Protocol Stop: 01/25/18 00:16 Last Admin: 01/19/18 05:12 Dose: 200 mls/hr Vancomycin HCl (Vancomycin 1gm) 1 gm in 250 mls @ 167 mls/hr IVPB Q12H [facility] PRN Reason: Protocol Last Admin: 01/18/18 21:18 Dose: 167 mls/hr Ibuprofen (Motrin Tab) 400 mg PO Q4H PRN PRN Reason: Fever >100.4 F Last Admin: 01/19/18 01:13 Dose: 400 mg Insulin Human Lispro (Humalog Med) 0 units SC Q6 [facility] PRN Reason: Protocol Last Admin: 01/19/18 05:41 Dose: Not Given Lorazepam (Ativan) 0.5 mg IVP Q6H PRN; Protocol PRN Reason: Symptoms of alcohol withdrawl Multivitamins/Minerals (Therapeutic-M Tab) 1 tab PO DAILY [facility] Ondansetron HCl (Zofran Inj) 4 mg IVP Q4H PRN PRN Reason: Nausea/Vomiting Pantoprazole Sodium (Protonix Inj) 40 mg IVP Q12 [facility] Last Admin: 01/18/18 21:18 Dose: 40 mg Thiamine HCl (Vitamin B1 Tab) 100 mg PO DAILY [facility] Last Admin: 01/18/18 12:34 Dose: 100 mg - Labs Labs: 01/19/18 06:00 01/19/18 07:00 PT 14.4 SECONDS (9.4-12.5) H 01/19/18 06:00 INR 1.25 (0.93-1.08) H 01/19/18 06:00 - Constitutional Appears: Chronically Ill - Head Exam Head Exam: NORMAL INSPECTION - Eye Exam Eye Exam: Scleral icterus - ENT Exam ENT Exam: Mucous Membranes Moist - Neck Exam Neck Exam: absent: Meningismus - Respiratory Exam Respiratory Exam: Decreased Breath Sounds - Cardiovascular Exam Cardiovascular Exam: +S1, +S2 - GI/Abdominal Exam GI & Abdominal Exam: Soft. absent: Tenderness Assessment and Plan - Assessment and Plan (Free Text) Plan: Assessment Consider sepsis due to alcoholic hepatitis, no evidence of acute biliary tract disease DM HTN dyslipidemia GERD Plan on Zosyn day 2; reviewed MRCP, HIDA Scan which are negative - if cultures continue to be negative, will d/c antibiotics GI on board hepatitis profile is negative will continue to monitor clinically
[2018-01-20] MEDS: Piperacillin/Tazobact 3.375 gm 100 ML IVPB SCH ×2 (05:13)
--- NOTE | 2018-01-20 07:24 | CP.PCM.PN ---
<Lesvia Mcdermott - Last Filed: 01/20/18 15:27> Subjective - Date & Time of Evaluation Date of Evaluation: 01/20/18 Time of Evaluation: 07:20 - Subjective Subjective: Lesvia Mcdermott DO, PGY-1: Hospitalist Service Patient seen and examined at bedside. Patient denies any abdominal pain, nausea , vomiting, fever, or chills. Patient reports he has not passed a BM in several days. Nurse reports no events overnight. Objective - Vital Signs/Intake and Output Vital Signs (last 24 hours): Temp Pulse Resp BP Pulse Ox 97.6 F 84 18 132/56 L 98 01/19/18 22:00 01/19/18 22:00 01/19/18 22:00 01/19/18 22:00 01/19/18 22:00 Intake and Output: 01/20/18 01/20/18 06:59 18:59 Intake Total 720 Balance 720 - Medications Medications: Current Medications Folic Acid (Folic Acid) 1 mg PO DAILY [facility] Last Admin: 01/19/18 11:22 Dose: 1 mg Sodium Chloride (Sodium Chloride 0.9%) 1,000 mls @ 100 mls/hr IV .Q10H [facility] Last Admin: 01/19/18 22:15 Dose: 100 mls/hr Piperacillin Sod/Tazobactam Sod (Zosyn 3.375 In Ns 100ml) 100 mls @ 200 mls/hr IVPB Q6 [facility] PRN Reason: Protocol Stop: 01/25/18 00:16 Last Admin: 01/20/18 05:13 Dose: 200 mls/hr Vancomycin HCl (Vancomycin 1gm) 1 gm in 250 mls @ 167 mls/hr IVPB Q12H [facility] PRN Reason: Protocol Last Admin: 01/19/18 22:12 Dose: 167 mls/hr Ibuprofen (Motrin Tab) 400 mg PO Q4H PRN PRN Reason: Fever >100.4 F Last Admin: 01/19/18 01:13 Dose: 400 mg Insulin Human Lispro (Humalog Med) 0 units SC ACHS [facility] PRN Reason: Protocol Multivitamins/Minerals (Therapeutic-M Tab) 1 tab PO DAILY [facility] Last Admin: 01/19/18 11:23 Dose: 1 tab Ondansetron HCl (Zofran Inj) 4 mg IVP Q4H PRN PRN Reason: Nausea/Vomiting Pantoprazole Sodium (Protonix Ec Tab) 40 mg PO Q12 [facility] Thiamine HCl (Vitamin B1 Tab) 100 mg PO DAILY [facility] Last Admin: 01/19/18 11:23 Dose: 100 mg - Labs Labs: 01/19/18 06:00 01/19/18 07:00 PT 14.4 SECONDS (9.4-12.5) H 01/19/18 06:00 INR 1.25 (0.93-1.08) H 01/19/18 06:00 - Constitutional Appears: Well, No Acute Distress - Head Exam Head Exam: ATRAUMATIC, NORMOCEPHALIC - Eye Exam Eye Exam: Scleral icterus Additional comments: left eye blind - ENT Exam ENT Exam: Mucous Membranes Dry - Neck Exam Neck Exam: Normal Inspection - Respiratory Exam Respiratory Exam: Clear to Ausculation Bilateral, NORMAL BREATHING PATTERN. absent: Accessory Muscle Use - Cardiovascular Exam Cardiovascular Exam: RRR, +S1, +S2 - GI/Abdominal Exam GI & Abdominal Exam: Soft. absent: Guarding, Rebound - Extremities Exam Extremities Exam: Normal Inspection - Neurological Exam Neurological Exam: Alert, Awake, Oriented x3 - Psychiatric Exam Psychiatric exam: Normal Affect, Normal Mood - Skin Additional comments: jaundiced Assessment and Plan - Assessment and Plan (Free Text) Assessment: 72 year old with a past medical history of alcoholism, DM II, GERD, and hypertension who presents with one day of severe RUQ pain, fever, jaundice likely secondary to cholangitis which has resolved at this time. Patient does have significant gallstone burden and liver disease warranting follow-up with GI and outpatient cholecystectomy. Plan: 1) Cholangitis, resolved - Zofran 4 mg PRN and Protonix 40 mg IVP q12h - antibiotics discontinued - MRCP and HIDA suggest hepatocellular disease - Will trend LFT and monitor clinically - MELD score of 18, no need for steroid - GI and surgery recommendations appreciated. 2) Alcoholic/malnutrition - MV, Folic acid, and thiamine - Alcohol cessation counseling 3) Hypertension - Holding Lisinopril 4) DM II - Insulin sliding scale Case seen and discussed with attending physician, Dr. Klein <Samantha Klein - Last Filed: 01/21/18 12:01> Objective - Vital Signs/Intake and Output Vital Signs (last 24 hours): Temp Pulse Resp BP Pulse Ox 98.9 F 69 20 163/88 H 96 01/21/18 08:47 01/21/18 08:47 01/21/18 08:47 01/21/18 08:47 01/21/18 08:47 Intake and Output: 01/21/18 01/21/18 06:59 18:59 Intake Total 900 Balance 900 - Medications Medications: Current Medications Folic Acid (Folic Acid) 1 mg PO DAILY [facility] Last Admin: 01/21/18 10:49 Dose: 1 mg Sodium Chloride (Sodium Chloride 0.9%) 1,000 mls @ 100 mls/hr IV .Q10H [facility] Last Admin: 01/20/18 21:33 Dose: 100 mls/hr Insulin Human Lispro (Humalog Med) 0 units SC ACHS [facility] PRN Reason: Protocol Last Admin: 01/21/18 11:49 Dose: 1 units Multivitamins/Minerals (Therapeutic-M Tab) 1 tab PO DAILY [facility] Last Admin: 01/21/18 10:49 Dose: 1 tab Ondansetron HCl (Zofran Inj) 4 mg IVP Q4H PRN PRN Reason: Nausea/Vomiting Pantoprazole Sodium (Protonix Ec Tab) 40 mg PO Q12 [facility] Last Admin: 01/21/18 10:49 Dose: 40 mg Pentoxifylline (Pentoxil) 400 mg PO TID [facility] Last Admin: 01/21/18 10:49 Dose: 400 mg Thiamine HCl (Vitamin B1 Tab) 100 mg PO DAILY [facility] Last Admin: 01/21/18 10:49 Dose: 100 mg - Labs Labs: 01/21/18 06:30 01/21/18 06:30 PT 14.4 SECONDS (9.4-12.5) H 01/19/18 06:00 INR 1.25 (0.93-1.08) H 01/19/18 06:00 Attending/Attestation - Attestation I have personally seen and examined this patient.: Yes I have fully participated in the care of the patient.: Yes I have reviewed all pertinent clinical information, including history, physical exam and plan: Yes Notes (Text): 01/21/18 12:00 Medical record note made by the resident after discussion with my direction and input after the patient was personally seen and examined by me. I have reviewed the chart and agree that the record accurately reflects by personal performance of the history, physical exam, data review, and medical decision-making, in the course for the patient. I have also personally directed the plan of care. 72 year old male with PMH of alcohol abuse was admitted with abdominal pain , fever and jaundice, found to have cholelithiasis. HIDA scan suggestive of hepatocellular dysfunction. MRCP negative for choledocholithiasis. Patient is feeling better today, AST.ALT and alkaline phosphatase are improving but TB is still high.Patient is tolerating diet.Cultures are negative.Antibiotics has been discontinued by ID.Patient is afebrile.
[2018-01-20 07:46] LABS: BASO # 0.06 K/mm3 (0.0-2.0); BASO % 0.4 % (0.0-3.0); EOS # 0.7 (0.0-0.7); EOS % 4.8 % (1.5-5.0); GRAN # 11.38 (1.4-6.5); GRAN % 74.6 % (50.0-68.0); HEMOGLOBIN 9.3 g/dL (14.0-18.0); LYMPH # 1.6 (1.2-3.4); LYMPH % 10.3 % (22.0-35.0); MEAN CELL VOLUME 79.9 fl (80.0-105.0); MEAN CORPUSCULAR HEMOGLOBIN 29.2 pg (25.0-35.0); MEAN CORPUSCULAR HGB CONC 36.5 g/dl (31.0-37.0); MEAN PLATELET VOLUME 10.9 fl (7.0-11.0); MONO # 1.5 (0.1-0.6); MONO % 9.9 % (1.0-6.0); RBC 3.19 10^6/uL (3.5-6.1); RED CELL DISTRIBUTION WIDTH 18.9 % (11.5-14.5); WHITE BLOOD COUNT 15.3 10^3/ul (4.5-11.0)
[2018-01-20 08:03] LABS: ALB/GLOB RATIO 0.9 (1.1-1.8); ALBUMIN 3.1 g/dL (3.0-4.8); ALT/SGPT 119 U/L (7-56); AST/SGOT 77 U/L (17-59); BLOOD UREA NITROGEN 10 mg/dL (7-21); CALCIUM 8.9 mg/dL (8.4-10.5); GFR AFRICAN-AMERICAN > 60; GFR NON-AFRICAN AMERICAN > 60
[2018-01-20 08:18] LABS: CERULOPLASMIN 26 mg/dL (18-36)
[2018-01-20] MEDS: Insulin Lispro (humaLOG) MEDIUM Coverage SC SCH ×4 (08:34→21:32)
[2018-01-20] MEDS: Pantoprazole 40 mg EC Tab PO SCH ×2 (09:30→21:32)
[2018-01-20] MEDS: Vancomycin 1gm in NS 250ml 1 GM/250 ML BAG IVPB SCH (09:30)
[2018-01-20] MEDS: Multivitamin With Minerals Tab PO SCH (09:30)
[2018-01-20] MEDS: Sodium Chloride 0.9% 1,000 ML IV SCH ×2 (09:38→21:33)
--- NOTE | 2018-01-20 09:38 | CP.PCM.PN ---
Subjective - Date & Time of Evaluation Date of Evaluation: 01/20/18 Time of Evaluation: 09:33 - Subjective Subjective: I have seen and examined patient. No acute events overnight, he is seen resting in bed comfortably. He denies abdominal pain, nausea, vomiting, diarrhea, fever/chills. He had a normal formed bowel movement this morning. Tolerating PO liquids without difficulty. Review of vitals from this morning shows temperature of 99.9. 12 point review of systems performed, negative aside from mentioned above. Objective - Vital Signs/Intake and Output Vital Signs (last 24 hours): Temp Pulse Resp BP Pulse Ox 99.9 F H 75 18 148/83 97 01/20/18 08:00 01/20/18 08:00 01/20/18 08:00 01/20/18 08:00 01/20/18 08:00 Intake and Output: 01/20/18 01/20/18 06:59 18:59 Intake Total 720 Balance 720 - Medications Medications: Current Medications Folic Acid (Folic Acid) 1 mg PO DAILY [facility] Last Admin: 01/19/18 11:22 Dose: 1 mg Sodium Chloride (Sodium Chloride 0.9%) 1,000 mls @ 100 mls/hr IV .Q10H [facility] Last Admin: 01/19/18 22:15 Dose: 100 mls/hr Piperacillin Sod/Tazobactam Sod (Zosyn 3.375 In Ns 100ml) 100 mls @ 200 mls/hr IVPB Q6 [facility] PRN Reason: Protocol Stop: 01/25/18 00:16 Last Admin: 01/20/18 05:13 Dose: 200 mls/hr Vancomycin HCl (Vancomycin 1gm) 1 gm in 250 mls @ 167 mls/hr IVPB Q12H [facility] PRN Reason: Protocol Last Admin: 01/19/18 22:12 Dose: 167 mls/hr Insulin Human Lispro (Humalog Med) 0 units SC ACHS [facility] PRN Reason: Protocol Last Admin: 01/20/18 08:34 Dose: Not Given Multivitamins/Minerals (Therapeutic-M Tab) 1 tab PO DAILY [facility] Last Admin: 01/19/18 11:23 Dose: 1 tab Ondansetron HCl (Zofran Inj) 4 mg IVP Q4H PRN PRN Reason: Nausea/Vomiting Pantoprazole Sodium (Protonix Ec Tab) 40 mg PO Q12 [facility] Thiamine HCl (Vitamin B1 Tab) 100 mg PO DAILY [facility] Last Admin: 01/19/18 11:23 Dose: 100 mg - Labs Labs: 01/20/18 07:00 01/20/18 07:00 PT 14.4 SECONDS (9.4-12.5) H 01/19/18 06:00 INR 1.25 (0.93-1.08) H 01/19/18 06:00 - Constitutional Appears: Non-toxic, No Acute Distress - Head Exam Head Exam: NORMAL INSPECTION - Eye Exam Eye Exam: PERRL, Scleral icterus - ENT Exam ENT Exam: Mucous Membranes Moist - Respiratory Exam Respiratory Exam: Clear to Ausculation Bilateral - Cardiovascular Exam Cardiovascular Exam: REGULAR RHYTHM, +S1, +S2 - GI/Abdominal Exam GI & Abdominal Exam: Soft, Normal Bowel Sounds Additional comments: non tender to palpation in four quadrants +hepatomegaly - Extremities Exam Extremities Exam: Normal Inspection - Skin Additional comments: +jaundice Assessment and Plan - Assessment and Plan (Free Text) Assessment: Acute ETOH hepatitis Jaundice Transaminitis Plan: - Advance diet slowly as tolerated - LFTs trending down, continue to monitor - Patient with DF<32, can consider use of Trental for HRS prevention - Follow up ID recommendations, suggest stopping antibiotics if blood cultures remain negative as cholestasis can be worsened with therapy - Await autoimmune panel results - ETOH cessation - No further planned GI intervention, patient would benefit from subsequent outpatient follow up. Will sign off case, please reconsult as necessary, thank you.
--- NOTE | 2018-01-20 13:25 | CP.PCM.PN ---
Subjective - Date & Time of Evaluation Date of Evaluation: 01/20/18 Time of Evaluation: 13:21 - Subjective Subjective: Surgery Pt s&e. NAEON. Denies F/C/N/V/D/CP/SOB/CP/abd pain. + void. + BM. Objective - Vital Signs/Intake and Output Vital Signs (last 24 hours): Temp Pulse Resp BP Pulse Ox 99.9 F H 75 18 148/83 97 01/20/18 08:00 01/20/18 08:00 01/20/18 08:00 01/20/18 08:00 01/20/18 08:00 Intake and Output: 01/20/18 01/20/18 06:59 18:59 Intake Total 720 Balance 720 - Medications Medications: Current Medications Folic Acid (Folic Acid) 1 mg PO DAILY [facility] Last Admin: 01/20/18 09:30 Dose: 1 mg Sodium Chloride (Sodium Chloride 0.9%) 1,000 mls @ 100 mls/hr IV .Q10H [facility] Last Admin: 01/20/18 09:38 Dose: 100 mls/hr Insulin Human Lispro (Humalog Med) 0 units SC ACHS [facility] PRN Reason: Protocol Last Admin: 01/20/18 12:36 Dose: Not Given Multivitamins/Minerals (Therapeutic-M Tab) 1 tab PO DAILY [facility] Last Admin: 01/20/18 09:30 Dose: 1 tab Ondansetron HCl (Zofran Inj) 4 mg IVP Q4H PRN PRN Reason: Nausea/Vomiting Pantoprazole Sodium (Protonix Ec Tab) 40 mg PO Q12 [facility] Last Admin: 01/20/18 09:30 Dose: 40 mg Thiamine HCl (Vitamin B1 Tab) 100 mg PO DAILY [facility] Last Admin: 01/20/18 09:30 Dose: 100 mg - Labs Labs: 01/20/18 07:00 01/20/18 07:00 PT 14.4 SECONDS (9.4-12.5) H 01/19/18 06:00 INR 1.25 (0.93-1.08) H 01/19/18 06:00 - Constitutional Appears: No Acute Distress - Head Exam Head Exam: ATRAUMATIC, NORMAL INSPECTION, NORMOCEPHALIC - Eye Exam Eye Exam: Scleral icterus Pupil Exam: NORMAL ACCOMODATION, PERRL - ENT Exam ENT Exam: Mucous Membranes Moist, Normal Exam - Neck Exam Neck Exam: Full ROM, Normal Inspection. absent: Lymphadenopathy - Respiratory Exam Respiratory Exam: Clear to Ausculation Bilateral, NORMAL BREATHING PATTERN - Cardiovascular Exam Cardiovascular Exam: REGULAR RHYTHM, +S1, +S2. absent: Murmur - GI/Abdominal Exam GI & Abdominal Exam: Soft, Normal Bowel Sounds. absent: Distended, Tenderness - Extremities Exam Extremities Exam: Full ROM, Normal Capillary Refill, Normal Inspection. absent : Joint Swelling, Pedal Edema - Back Exam Back Exam: NORMAL INSPECTION - Neurological Exam Neurological Exam: Alert, Awake, CN II-XII Intact, Normal Gait, Oriented x3 - Psychiatric Exam Psychiatric exam: Normal Affect, Normal Mood - Skin Skin Exam: Dry, Intact, Normal Color, Warm Assessment and Plan - Assessment and Plan (Free Text) Assessment: 72 y/o male w/ sepsis possibly 2/2 colitis, resolving, with persistent elevated liver enzymes 2/2 intrahepatic liver disease: resolving Leukocytosis, LFT trending down. Plan: -MRCP and HIDA negative for choledocholithiasis or cholecystitis, appears to be intrahepatic disease -GI reports no indication for ERCP at this time GI recommends DC ing ABX if blood cx neg -ok for diet from surgical standpoint -supportive care -medical management per primary team -no indication for acute surgical intervention at this time -Elective outpatient lap robi Iqbal
--- NOTE | 2018-01-20 14:20 | CP.PCM.PN ---
Subjective - Date & Time of Evaluation Date of Evaluation: 01/20/18 Time of Evaluation: 12:45 - Subjective Subjective: Resting comfortably in bed, no fevers, no abdominal pain, no nausea, no diarrhea. Objective - Vital Signs/Intake and Output Vital Signs (last 24 hours): Temp Pulse Resp BP Pulse Ox 99.9 F H 75 18 148/83 97 01/20/18 08:00 01/20/18 08:00 01/20/18 08:00 01/20/18 08:00 01/20/18 08:00 Intake and Output: 01/20/18 01/20/18 06:59 18:59 Intake Total 720 Balance 720 - Medications Medications: Current Medications Folic Acid (Folic Acid) 1 mg PO DAILY [facility] Last Admin: 01/20/18 09:30 Dose: 1 mg Sodium Chloride (Sodium Chloride 0.9%) 1,000 mls @ 100 mls/hr IV .Q10H [facility] Last Admin: 01/20/18 09:38 Dose: 100 mls/hr Insulin Human Lispro (Humalog Med) 0 units SC ACHS [facility] PRN Reason: Protocol Last Admin: 01/20/18 08:34 Dose: Not Given Multivitamins/Minerals (Therapeutic-M Tab) 1 tab PO DAILY [facility] Last Admin: 01/20/18 09:30 Dose: 1 tab Ondansetron HCl (Zofran Inj) 4 mg IVP Q4H PRN PRN Reason: Nausea/Vomiting Pantoprazole Sodium (Protonix Ec Tab) 40 mg PO Q12 [facility] Last Admin: 01/20/18 09:30 Dose: 40 mg Thiamine HCl (Vitamin B1 Tab) 100 mg PO DAILY [facility] Last Admin: 01/20/18 09:30 Dose: 100 mg - Labs Labs: 01/20/18 07:00 01/20/18 07:00 PT 14.4 SECONDS (9.4-12.5) H 01/19/18 06:00 INR 1.25 (0.93-1.08) H 01/19/18 06:00 - Constitutional Appears: Chronically Ill - Head Exam Head Exam: NORMAL INSPECTION - Eye Exam Eye Exam: Scleral icterus - Neck Exam Neck Exam: absent: Meningismus - Respiratory Exam Respiratory Exam: Decreased Breath Sounds - Cardiovascular Exam Cardiovascular Exam: +S1, +S2 - GI/Abdominal Exam GI & Abdominal Exam: Distended, Soft. absent: Guarding, Rigid, Tenderness, Rebound Assessment and Plan - Assessment and Plan (Free Text) Plan: Assessment alcoholic hepatitis with SIRS, no evidence of acute biliary tract disease or sepsis DM HTN dyslipidemia GERD Plan reviewed MRCP, HIDA Scan which are negative, cultures continue to be negative, will continue to monitor off antibiotics GI on board, treating alcoholic hepatitis hepatitis profile is negative
[2018-01-20 22:13] VITALS: O2SAT 96
[2018-01-21 07:35] LABS: BASO # 0.07 K/mm3 (0.0-2.0); BASO % 0.5 % (0.0-3.0); EOS # 0.3 (0.0-0.7); GRAN # 10.19 (1.4-6.5); GRAN % 70.6 % (50.0-68.0); HEMOGLOBIN 8.7 g/dL (14.0-18.0); LYMPH # 2.2 (1.2-3.4); LYMPH % 15.3 % (22.0-35.0); MEAN CELL VOLUME 79.1 fl (80.0-105.0); MEAN CORPUSCULAR HEMOGLOBIN 29.4 pg (25.0-35.0); MEAN CORPUSCULAR HGB CONC 37.2 g/dl (31.0-37.0); MEAN PLATELET VOLUME 11.1 fl (7.0-11.0); MONO # 1.7 (0.1-0.6); MONO % 11.6 % (1.0-6.0); RBC 2.96 10^6/uL (3.5-6.1); WHITE BLOOD COUNT 14.4 10^3/ul (4.5-11.0)
--- NOTE | 2018-01-21 07:47 | CP.PCM.PN ---
Subjective - Date & Time of Evaluation Date of Evaluation: 01/21/18 Time of Evaluation: 07:42 - Subjective Subjective: Surgery: Dr. Iqbal Pt seen and examined. States he feels very well and has no complaints at this time. He admits to tolerating his diet,having BMs, and denies N/V. States he's ambulating & denies F/C. Objective - Vital Signs/Intake and Output Vital Signs (last 24 hours): Temp Pulse Resp BP Pulse Ox 98.5 F 62 18 151/79 H 96 01/20/18 22:00 01/20/18 22:00 01/20/18 22:00 01/20/18 22:00 01/20/18 22:00 Intake and Output: 01/21/18 01/21/18 06:59 18:59 Intake Total 900 Balance 900 - Medications Medications: Current Medications Folic Acid (Folic Acid) 1 mg PO DAILY [facility] Last Admin: 01/20/18 09:30 Dose: 1 mg Sodium Chloride (Sodium Chloride 0.9%) 1,000 mls @ 100 mls/hr IV .Q10H [facility] Last Admin: 01/20/18 21:33 Dose: 100 mls/hr Insulin Human Lispro (Humalog Med) 0 units SC ACHS [facility] PRN Reason: Protocol Last Admin: 01/20/18 21:32 Dose: Not Given Multivitamins/Minerals (Therapeutic-M Tab) 1 tab PO DAILY [facility] Last Admin: 01/20/18 09:30 Dose: 1 tab Ondansetron HCl (Zofran Inj) 4 mg IVP Q4H PRN PRN Reason: Nausea/Vomiting Pantoprazole Sodium (Protonix Ec Tab) 40 mg PO Q12 [facility] Last Admin: 01/20/18 21:32 Dose: 40 mg Thiamine HCl (Vitamin B1 Tab) 100 mg PO DAILY [facility] Last Admin: 01/20/18 09:30 Dose: 100 mg - Labs Labs: 01/20/18 07:00 01/20/18 07:00 PT 14.4 SECONDS (9.4-12.5) H 01/19/18 06:00 INR 1.25 (0.93-1.08) H 01/19/18 06:00 - Constitutional Appears: Well, No Acute Distress - Eye Exam Eye Exam: Normal appearance - ENT Exam ENT Exam: Mucous Membranes Moist - Respiratory Exam Respiratory Exam: NORMAL BREATHING PATTERN - Cardiovascular Exam Cardiovascular Exam: RRR - GI/Abdominal Exam GI & Abdominal Exam: Soft. absent: Distended, Tenderness - Neurological Exam Neurological Exam: Alert, Awake, Oriented x3 - Skin Skin Exam: Dry, Warm Assessment and Plan - Assessment and Plan (Free Text) Assessment: 72M with transaminitis likely 2/2 alcoholic hepatitis; r/o choledocholithiais Plan: - WBC & liver enzymes trending down - pt tolerating clears; diet can be advanced as tolerated - recommend outpt follow up for elective cholecystectomy - no further surgical intervention at this time - d/w Dr. Rasheed Olivier, PGY-3
[2018-01-21 07:52] LABS: ALB/GLOB RATIO 0.8 (1.1-1.8); ALBUMIN 2.9 g/dL (3.0-4.8); ALT/SGPT 103 U/L (7-56); AST/SGOT 69 U/L (17-59); BLOOD UREA NITROGEN 7 mg/dL (7-21); CALCIUM 8.7 mg/dL (8.4-10.5); GFR AFRICAN-AMERICAN > 60; GFR NON-AFRICAN AMERICAN > 60
[2018-01-21] MEDS: Insulin Lispro (humaLOG) MEDIUM Coverage SC SCH ×2 (07:59→11:49)
[2018-01-21 08:50] VITALS: BP 163/88; PULSE 69; RESP 20; TEMP 98.9
[2018-01-21] MEDS ORDERED: Potassium Chloride 20 mEq ER Tab PO STA (09:07)
[2018-01-21] MEDS: Pantoprazole 40 mg EC Tab PO SCH (10:49)
[2018-01-21] MEDS: Multivitamin With Minerals Tab PO SCH (10:49)
--- NOTE | 2018-01-21 12:08 | CP.PCM.DIS ---
<Lesvia Mcdermott - Last Filed: 01/22/18 07:31> Provider - Provider Date of Admission: 01/18/18 09:12 Attending physician: Samantha Klein MD Primary care physician: Aryan Navas MD Consults: Dr. Courtney Nguyễn/Mirtha Time Spent in preparation of Discharge (in minutes): 40 Hospital Course - Lab Results Lab Results: Micro Results 01/18/18 20:35 Urine Urine Culture - Final No Growth (<1,000 CFU/ML) Most Recent Lab Values WBC 14.4 10^3/ul (4.5-11.0) H 01/21/18 06:30 RBC 2.96 10^6/uL (3.5-6.1) L 01/21/18 06:30 Hgb 8.7 g/dL (14.0-18.0) L 01/21/18 06:30 Hct 23.4 % (42.0-52.0) L 01/21/18 06:30 MCV 79.1 fl (80.0-105.0) L 01/21/18 06:30 MCH 29.4 pg (25.0-35.0) 01/21/18 06:30 MCHC 37.2 g/dl (31.0-37.0) H 01/21/18 06:30 RDW 19.0 % (11.5-14.5) H 01/21/18 06:30 Plt Count 235 10^3/uL (120.0-450.0) 01/21/18 06:30 MPV 11.1 fl (7.0-11.0) H 01/21/18 06:30 Gran % 70.6 % (50.0-68.0) H 01/21/18 06:30 Lymph % (Auto) 15.3 % (22.0-35.0) L 01/21/18 06:30 [place] % (Auto) 11.6 % (1.0-6.0) H 01/21/18 06:30 Eos % (Auto) 2.0 % (1.5-5.0) 01/21/18 06:30 Baso % (Auto) 0.5 % (0.0-3.0) 01/21/18 06:30 Gran # 10.19 (1.4-6.5) H 01/21/18 06:30 Lymph # (Auto) 2.2 (1.2-3.4) 01/21/18 06:30 [place] # (Auto) 1.7 (0.1-0.6) H 01/21/18 06:30 Eos # (Auto) 0.3 (0.0-0.7) 01/21/18 06:30 Baso # (Auto) 0.07 K/mm3 (0.0-2.0) 01/21/18 06:30 Neutrophils % (Manual) 84 % (50.0-70.0) H 01/17/18 16:30 Band Neutrophils % 3 % (0-2) H 01/17/18 16:30 Lymphocytes % (Manual) 6 % (22.0-35.0) L 01/17/18 16:30 Monocytes % (Manual) 7 % (1.0-6.0) H 01/17/18 16:30 Platelet Evaluation Normal (NORMAL) 01/17/18 16:30 Hypochromasia 1+ 01/17/18 16:30 Anisocytosis (manual) 1+ 01/17/18 16:30 Microcytosis (manual) 1+ 01/17/18 16:30 ESR 15 mm/hr (0.00-15.0) 01/18/18 01:50 PT 14.4 SECONDS (9.4-12.5) H 01/19/18 06:00 INR 1.25 (0.93-1.08) H 01/19/18 06:00 pO2 42 mm/Hg (30-55) 01/17/18 16:30 VBG pH 7.30 (7.32-7.43) L 01/17/18 16:30 VBG pCO2 59.0 (40-60) 01/17/18 16:30 VBG HCO3 29.0 mmol/l (21-28) H 01/17/18 16:30 VBG Total CO2 30.8 mmol.L (22-28) H 01/17/18 16:30 VBG O2 Sat (Calc) 71.6 % (40-65) H 01/17/18 16:30 VBG Base Excess 1.2 mmol/L (0.0-2.0) 01/17/18 16:30 VBG Potassium 5.1 mmol/L (3.6-5.2) 01/17/18 16:30 Sodium 140.0 mmol/L (132-148) 01/17/18 16:30 Chloride 107.0 mmol/L (98-107) 01/17/18 16:30 Glucose 188 mg/dl (75-110) H 01/17/18 16:30 Lactate 1.8 mmol/L (0.7-2.1) 01/17/18 16:30 FiO2 21.0 % 01/17/18 16:30 Sodium 144 mmol/L (132-148) 01/21/18 06:30 Potassium 3.5 mmol/L (3.6-5.0) L 01/21/18 06:30 Chloride 114 mmol/L (98-107) H 01/21/18 06:30 Carbon Dioxide 19 mmol/L (21-33) L 01/21/18 06:30 Anion Gap 15 (10-20) 01/21/18 06:30 BUN 7 mg/dL (7-21) 01/21/18 06:30 Creatinine 1.1 mg/dl (0.8-1.5) 01/21/18 06:30 Est GFR ( Amer) > 60 01/21/18 06:30 Est GFR (Non-Af Amer) > 60 01/21/18 06:30 POC Glucose (mg/dL) 125 mg/dL (65-110) H 01/21/18 06:28 Random Glucose 112 mg/dL (70-110) H 01/21/18 06:30 Hemoglobin A1c 4.3 % (4.2-6.5) 01/18/18 01:50 Calcium 8.7 mg/dL (8.4-10.5) 01/21/18 06:30 Phosphorus 3.2 mg/dL (2.5-4.5) 01/18/18 01:50 Magnesium 1.5 mg/dL (1.7-2.2) L 01/18/18 01:50 Iron 34 ug/dL (45-180) L 01/18/18 06:30 TIBC 308 ug/dL (261-462) 01/18/18 06:30 % Saturation 11 % (20-55) L 01/18/18 06:30 Ferritin 184.0 ng/mL 01/18/18 06:30 Total Bilirubin 8.7 mg/dL (0.2-1.3) H 01/21/18 06:30 AST 69 U/L (17-59) H 01/21/18 06:30 ALT 103 U/L (7-56) H 01/21/18 06:30 Alkaline Phosphatase 244 U/L (38-126) H D 01/21/18 06:30 Lactate Dehydrogenase 786 U/L (333-699) H 01/17/18 16:30 Total Creatine Kinase 36 U/L (35-230) 01/17/18 16:30 Troponin I 0.01 ng/mL D 01/18/18 06:50 C-React Prot High Sens > 15.00 mg/L (1.00-3.00) H 01/18/18 01:50 Total Protein 6.5 g/dL (5.8-8.3) 01/21/18 06:30 Albumin 2.9 g/dL (3.0-4.8) L 01/21/18 06:30 Globulin 3.6 gm/dL 01/21/18 06:30 Albumin/Globulin Ratio 0.8 (1.1-1.8) L 01/21/18 06:30 Ceruloplasmin 26 mg/dL (18-36) 01/19/18 06:00 Triglycerides 69 mg/dL (35-160) 01/18/18 01:50 Cholesterol 91 mg/dL (130-200) L 01/18/18 01:50 LDL Cholesterol Direct 42 mg/dL (0-129) 01/18/18 01:50 HDL Cholesterol 29 mg/dL (29-60) 01/18/18 01:50 Amylase 83 U/L (35-125) 01/17/18 16:30 Lipase 210 U/L (23-300) 01/17/18 16:30 Prostate Specific Ag 0.7 ng/mL (0.00-2.5) 01/18/18 01:50 Venous Blood Potassium 5.1 mmol/L (3.6-5.2) 01/17/18 16:30 Urine Color Red (YELLOW) 01/18/18 16:00 Urine Appearance Turbid (CLEAR) 01/18/18 16:00 Urine pH 7.5 (4.7-8.0) 01/18/18 16:00 Ur Specific [place] 1.012 (1.005-1.035) 01/18/18 16:00 Urine Protein 2+ mg/dL (<30 mg/dL) H 01/18/18 16:00 Urine Glucose (UA) Negative mg/dL (NEGATIVE) 01/18/18 16:00 Urine Ketones Negative mg/dL (NEGATIVE) 01/18/18 16:00 Urine Blood Large (NEGATIVE) H 01/18/18 16:00 Urine Nitrate Negative (NEGATIVE) 01/18/18 16:00 Urine Bilirubin Negative (NEGATIVE) 01/18/18 16:00 Urine Urobilinogen Normal E.U./dL (<1 E.U./dL) 01/18/18 16:00 Ur Leukocyte Esterase Large Darin/uL (NEGATIVE) H 01/18/18 16:00 Urine RBC Tntc /hpf (0-2) 01/18/18 16:00 Urine WBC 15 - 20 /hpf (0-6) 01/18/18 16:00 Ur Epithelial Cells 1 - 3 /hpf (0-5) 01/18/18 16:00 Urine Bacteria Few (NEG) 01/18/18 16:00 Alcohol, Quantitative < 10 mg/dL (0-10) 01/18/18 01:50 IgG 1417.2 mg/dL (700.0-1600.0) 01/19/18 06:00 IgA 283.1 mg/dL (70.0-400.0) 01/19/18 06:00 IgM 68.6 mg/dL (40.0-230.0) 01/19/18 06:00 SAM Screen Negative (Negative) 01/19/18 06:00 SAM Titer TEST NOT PERFORMED 01/19/18 06:00 SAM Titer 2 TEST NOT PERFORMED 01/19/18 06:00 SAM Pattern TEST NOT PERFORMED 01/19/18 06:00 SAM Pattern 2 TEST NOT PERFORMED 01/19/18 06:00 Anti-Mitochondrial Ab Negative (Negative) 01/19/18 06:00 Smooth Muscle Ab Titer TEST NOT PERFORMED 01/19/18 06:00 Anti-Smooth Muscle Ab Negative (Negative) 01/19/18 06:00 Hepatitis A IgM Ab Negative (NEGATIVE) 01/18/18 01:50 Hep Bs Antigen Negative (NEGATIVE) 01/18/18 01:50 Hep Bs Antibody Negative (NEGATIVE) 01/18/18 01:50 Hep B Core IgM Ab Negative (NEGATIVE) 01/18/18 01:50 Hepatitis C Antibody Negative (NEGATIVE) 01/18/18 01:50 HIV 1&2 Ag/Ab, 4th Gen Nonreactive (Nonreactive) 01/18/18 01:50 - Hospital Course Hospital Course: 72 year old with a past medical history of alcoholism, DM II, GERD, and hypertension who presented with one day of abrupt onset RUQ pain, fever, jaundice who was found to have a leukocytosis, elevated LFTS, hyperbilirubinemia. Imaging was suggestive of gallstone disease and likely cholangitis. Given the patient's constellation of signs and symptoms it was very likely he had an attack of acute cholangitis in the setting of alcoholic liver diseae. The patient was kept NPO and started empirically on antibiotics. GI, Infectious disease, and surgery were consulted. Infectious disease tailored the patient antibiotics, GI recommended advancing the patient diet, and surgery recommended outpatient cholecystecomy, once the patient's liver function was optimized. The patient was closely monitored through his hospital course and was discharged with the below written prescriptions, recommendations, and instruction. He is to follow up with GI and surgery as an outpatient. Also greater than 30 minutes was spent counselling the patient on abstaining form alcohol. - Date & Time of H&P Date of H&P: 01/21/18 Time of H&P: 09:35 Discharge Exam - Head Exam Head Exam: ATRAUMATIC, NORMOCEPHALIC - Eye Exam Eye Exam: EOMI, Scleral icterus Additional comments: left eye blind - ENT Exam ENT Exam: Mucous Membranes Moist, Normal Oropharynx - Neck Exam Neck exam: Normal Inspection - Respiratory Exam Respiratory Exam: Clear to PA & Lateral, NORMAL BREATHING PATTERN. absent: Accessory Muscle Use - Cardiovascular Exam Cardiovascular Exam: RRR, +S1, +S2 - GI/Abdominal Exam GI & Abdominal Exam: Normal Bowel Sounds. absent: Guarding, Rebound - Extremities Exam Extremities exam: normal inspection - Back Exam Back exam: NORMAL INSPECTION. absent: CVA tenderness (L), CVA tenderness (R) - Neurological Exam Neurological exam: Alert, CN II-XII Intact, Oriented x3 - Psychiatric Exam Psychiatric exam: Normal Affect, Normal Mood - Skin Additional comments: jaundiced Discharge Plan - Discharge Medications Prescriptions: Pentoxifylline [Pentoxil] 400 mg PO BID #20 ter - Follow Up Plan Condition: FAIR Disposition: HOME/ ROUTINE Instructions: Carbohydrate Counting Diet, Gallstones (DC), Alcohol Abuse and Alcoholism (DC), Liver Function Test, Effects of Alcohol on Your Health, Diabetic Meal Planning Additional Instructions: 1) Make appointment to visit Dr. Iqbal's (surgeon) office to discuss plans to remove gallbladder. 2) Patient to eat a diet low in fat, carbohydrates, less than 1800 calories, and not to exceed 2 grams of sodium daily. 3) For constipation, patient is recommended to take Miralax, unless otherwise indicated. 4) Patient to follow up with PMD within one week of Discharge. 5) Patient to remain abstinent from alcohol 6) Patient to schedule appointment with GI clinic, Dr. Hammond/Courtney/[facility]. 7) Do not take Metformin or Atorvastatin due to your liver problem, please check your blood sugar three times a day and record them, and present them to your PMD on your next visit. Referrals: Aryan Navas [Primary Care Provider] - Jamison Iqbal MD [Staff Provider] - <Samantha Klein - Last Filed: 01/22/18 11:48> Provider - Provider Date of Admission: 01/18/18 09:12 Attending physician: Samantha Klein MD Primary care physician: Aryan Navas MD Hospital Course - Lab Results Lab Results: Micro Results 01/20/18 09:40 Stool Stool Culture - Final NO SALMONELLA, SHIGELLA OR CAMPYLOBACTER ISOLATED. 01/18/18 20:35 Urine Urine Culture - Final No Growth (<1,000 CFU/ML) Most Recent Lab Values WBC 14.4 10^3/ul (4.5-11.0) H 01/21/18 06:30 RBC 2.96 10^6/uL (3.5-6.1) L 01/21/18 06:30 Hgb 8.7 g/dL (14.0-18.0) L 01/21/18 06:30 Hct 23.4 % (42.0-52.0) L 01/21/18 06:30 MCV 79.1 fl (80.0-105.0) L 01/21/18 06:30 MCH 29.4 pg (25.0-35.0) 01/21/18 06:30 MCHC 37.2 g/dl (31.0-37.0) H 01/21/18 06:30 RDW 19.0 % (11.5-14.5) H 01/21/18 06:30 Plt Count 235 10^3/uL (120.0-450.0) 01/21/18 06:30 MPV 11.1 fl (7.0-11.0) H 01/21/18 06:30 Gran % 70.6 % (50.0-68.0) H 01/21/18 06:30 Lymph % (Auto) 15.3 % (22.0-35.0) L 01/21/18 06:30 [place] % (Auto) 11.6 % (1.0-6.0) H 01/21/18 06:30 Eos % (Auto) 2.0 % (1.5-5.0) 01/21/18 06:30 Baso % (Auto) 0.5 % (0.0-3.0) 01/21/18 06:30 Gran # 10.19 (1.4-6.5) H 01/21/18 06:30 Lymph # (Auto) 2.2 (1.2-3.4) 01/21/18 06:30 [place] # (Auto) 1.7 (0.1-0.6) H 01/21/18 06:30 Eos # (Auto) 0.3 (0.0-0.7) 01/21/18 06:30 Baso # (Auto) 0.07 K/mm3 (0.0-2.0) 01/21/18 06:30 Neutrophils % (Manual) 84 % (50.0-70.0) H 01/17/18 16:30 Band Neutrophils % 3 % (0-2) H 01/17/18 16:30 Lymphocytes % (Manual) 6 % (22.0-35.0) L 01/17/18 16:30 Monocytes % (Manual) 7 % (1.0-6.0) H 01/17/18 16:30 Platelet Evaluation Normal (NORMAL) 01/17/18 16:30 Hypochromasia 1+ 01/17/18 16:30 Anisocytosis (manual) 1+ 01/17/18 16:30 Microcytosis (manual) 1+ 01/17/18 16:30 ESR 15 mm/hr (0.00-15.0) 01/18/18 01:50 PT 14.4 SECONDS (9.4-12.5) H 01/19/18 06:00 INR 1.25 (0.93-1.08) H 01/19/18 06:00 pO2 42 mm/Hg (30-55) 01/17/18 16:30 VBG pH 7.30 (7.32-7.43) L 01/17/18 16:30 VBG pCO2 59.0 (40-60) 01/17/18 16:30 VBG HCO3 29.0 mmol/l (21-28) H 01/17/18 16:30 VBG Total CO2 30.8 mmol.L (22-28) H 01/17/18 16:30 VBG O2 Sat (Calc) 71.6 % (40-65) H 01/17/18 16:30 VBG Base Excess 1.2 mmol/L (0.0-2.0) 01/17/18 16:30 VBG Potassium 5.1 mmol/L (3.6-5.2) 01/17/18 16:30 Sodium 140.0 mmol/L (132-148) 01/17/18 16:30 Chloride 107.0 mmol/L (98-107) 01/17/18 16:30 Glucose 188 mg/dl (75-110) H 01/17/18 16:30 Lactate 1.8 mmol/L (0.7-2.1) 01/17/18 16:30 FiO2 21.0 % 01/17/18 16:30 Sodium 144 mmol/L (132-148) 01/21/18 06:30 Potassium 3.5 mmol/L (3.6-5.0) L 01/21/18 06:30 Chloride 114 mmol/L (98-107) H 01/21/18 06:30 Carbon Dioxide 19 mmol/L (21-33) L 01/21/18 06:30 Anion Gap 15 (10-20) 01/21/18 06:30 BUN 7 mg/dL (7-21) 01/21/18 06:30 Creatinine 1.1 mg/dl (0.8-1.5) 01/21/18 06:30 Est GFR ( Amer) > 60 01/21/18 06:30 Est GFR (Non-Af Amer) > 60 01/21/18 06:30 POC Glucose (mg/dL) 169 mg/dL (65-110) H 01/21/18 11:02 Random Glucose 112 mg/dL (70-110) H 01/21/18 06:30 Hemoglobin A1c 4.3 % (4.2-6.5) 01/18/18 01:50 Calcium 8.7 mg/dL (8.4-10.5) 01/21/18 06:30 Phosphorus 3.2 mg/dL (2.5-4.5) 01/18/18 01:50 Magnesium 1.5 mg/dL (1.7-2.2) L 01/18/18 01:50 Iron 34 ug/dL (45-180) L 01/18/18 06:30 TIBC 308 ug/dL (261-462) 01/18/18 06:30 % Saturation 11 % (20-55) L 01/18/18 06:30 Ferritin 184.0 ng/mL 01/18/18 06:30 Total Bilirubin 8.7 mg/dL (0.2-1.3) H 01/21/18 06:30 AST 69 U/L (17-59) H 01/21/18 06:30 ALT 103 U/L (7-56) H 01/21/18 06:30 Alkaline Phosphatase 244 U/L (38-126) H D 01/21/18 06:30 Lactate Dehydrogenase 786 U/L (333-699) H 01/17/18 16:30 Total Creatine Kinase 36 U/L (35-230) 01/17/18 16:30 Troponin I 0.01 ng/mL D 01/18/18 06:50 C-React Prot High Sens > 15.00 mg/L (1.00-3.00) H 01/18/18 01:50 Total Protein 6.5 g/dL (5.8-8.3) 01/21/18 06:30 Albumin 2.9 g/dL (3.0-4.8) L 01/21/18 06:30 Globulin 3.6 gm/dL 01/21/18 06:30 Albumin/Globulin Ratio 0.8 (1.1-1.8) L 01/21/18 06:30 Ceruloplasmin 26 mg/dL (18-36) 01/19/18 06:00 Triglycerides 69 mg/dL (35-160) 01/18/18 01:50 Cholesterol 91 mg/dL (130-200) L 01/18/18 01:50 LDL Cholesterol Direct 42 mg/dL (0-129) 01/18/18 01:50 HDL Cholesterol 29 mg/dL (29-60) 01/18/18 01:50 Amylase 83 U/L (35-125) 01/17/18 16:30 Lipase 210 U/L (23-300) 01/17/18 16:30 Prostate Specific Ag 0.7 ng/mL (0.00-2.5) 01/18/18 01:50 Venous Blood Potassium 5.1 mmol/L (3.6-5.2) 01/17/18 16:30 Urine Color Red (YELLOW) 01/18/18 16:00 Urine Appearance Turbid (CLEAR) 01/18/18 16:00 Urine pH 7.5 (4.7-8.0) 01/18/18 16:00 Ur Specific [place] 1.012 (1.005-1.035) 01/18/18 16:00 Urine Protein 2+ mg/dL (<30 mg/dL) H 01/18/18 16:00 Urine Glucose (UA) Negative mg/dL (NEGATIVE) 01/18/18 16:00 Urine Ketones Negative mg/dL (NEGATIVE) 01/18/18 16:00 Urine Blood Large (NEGATIVE) H 01/18/18 16:00 Urine Nitrate Negative (NEGATIVE) 01/18/18 16:00 Urine Bilirubin Negative (NEGATIVE) 01/18/18 16:00 Urine Urobilinogen Normal E.U./dL (<1 E.U./dL) 01/18/18 16:00 Ur Leukocyte Esterase Large Darin/uL (NEGATIVE) H 01/18/18 16:00 Urine RBC Tntc /hpf (0-2) 01/18/18 16:00 Urine WBC 15 - 20 /hpf (0-6) 01/18/18 16:00 Ur Epithelial Cells 1 - 3 /hpf (0-5) 01/18/18 16:00 Urine Bacteria Few (NEG) 01/18/18 16:00 Alcohol, Quantitative < 10 mg/dL (0-10) 01/18/18 01:50 IgG 1417.2 mg/dL (700.0-1600.0) 01/19/18 06:00 IgA 283.1 mg/dL (70.0-400.0) 01/19/18 06:00 IgM 68.6 mg/dL (40.0-230.0) 01/19/18 06:00 SAM Screen Negative (Negative) 01/19/18 06:00 SAM Titer TEST NOT PERFORMED 01/19/18 06:00 SAM Titer 2 TEST NOT PERFORMED 01/19/18 06:00 SAM Pattern TEST NOT PERFORMED 01/19/18 06:00 SAM Pattern 2 TEST NOT PERFORMED 01/19/18 06:00 Anti-Mitochondrial Ab Negative (Negative) 01/19/18 06:00 Smooth Muscle Ab Titer TEST NOT PERFORMED 01/19/18 06:00 Anti-Smooth Muscle Ab Negative (Negative) 01/19/18 06:00 Hepatitis A IgM Ab Negative (NEGATIVE) 01/18/18 01:50 Hep Bs Antigen Negative (NEGATIVE) 01/18/18 01:50 Hep Bs Antibody Negative (NEGATIVE) 01/18/18 01:50 Hep B Core IgM Ab Negative (NEGATIVE) 01/18/18 01:50 Hepatitis C Antibody Negative (NEGATIVE) 01/18/18 01:50 HIV 1&2 Ag/Ab, 4th Gen Nonreactive (Nonreactive) 01/18/18 01:50 Attending/Attestation - Attestation I have personally seen and examined this patient.: Yes I have fully participated in the care of the patient.: Yes I have reviewed all pertinent clinical information, including history, physical exam and plan: Yes Notes (Text): 01/22/18 11:44 Medical record note made by the resident after discussion with my direction and input after the patient was personally seen and examined by me. I have reviewed the chart and agree that the record accurately reflects by personal performance of the history, physical exam, data review, and medical decision-making, in the course for the patient. I have also personally directed the plan of care. 72 year old male with PMH of alcohol abuse was admitted with abdominal pain , fever and jaundice, found to have cholelithiasis. HIDA scan suggestive of hepatocellular dysfunction. MRCP was negative for choledocholithiasis. Patient is feeling better, AST.ALT and alkaline phosphatase are improving but TB is still high.Patient is tolerating diet.Cultures are negative.Antibiotics has been discontinued by ID.Patient is afebrile.Patient will be discharged home and will follow up with GI clinic /Surgery and PCP.The issue of ongoing alcohol abuse was discussed in detail with him.His statin and Metformin is in hold at the time of discharge.He has been advised to check his blood sugars tid and keep record for PCP. Prognosis is guarded. Management plan was discussed in detail with patient. Education was provided.
--- NOTE | 2018-01-21 17:13 | PN ---
DATE: 01/21/2018 SUBJECTIVE: The patient is in bed in no acute distress, nontoxic. No fevers, no chills. PHYSICAL EXAMINATION VITAL SIGNS: Temperature is 98, blood pressure is 120/70, respiratory rate of 16. HEENT: Unremarkable. NECK: Supple. LUNGS: Have decreased breath sounds. HEART: Normal S1 and S2. ABDOMEN: Soft, nontender. LABORATORY DATA: Laboratory examination reveals a white count is reported to be at 14,400, hemoglobin of 8, platelets of 235. Chemistries reveals a BUN of 7, creatinine of 1.1. LFTs are noted with an alkaline phosphatase of 244 and urinalysis is noted and serology is noted. Microbiology reveals the blood cultures no growth of 3 days. Urine cultures no growth. Review of orders reveal the patient to be off of antibiotics. ASSESSMENT AND PLAN: A 72-year-old male who was seen early this morning in 573, bed 1, with alcoholic hepatitis with systemic inflammatory response syndrome, no evidence of biliary tree disease or sepsis and the patient with diabetes, hypertension, dyslipidemia and off of antibiotics. The patient for possible discharge. He is at risk for developing nosocomial infections. Karthikeyan Shannon MD
== END 2018-01-21 14:42 | disposition home or self-care (01) | DRG 872 ==
LOC: ED 15:21 → ERH 21:05 → 5RSO 23:28 → OBSVTOIN 01-18 09:12 → 2RNO 01-18 15:05 → 5RSO 01-19 13:21
PROVIDERS: ADMIT Internal Medicine; ATTEND Internal Medicine
DX: A41.9 Sepsis, unspecified organism (principal); K83.0 Cholangitis; E11.69 Type 2 diabetes mellitus with other specified complication; M48.56XA Collapsed vertebra, not elsewhere classified, lumbar region, initial encounter for fracture; M87.9 Osteonecrosis, unspecified; K80.10 Calculus of gallbladder with chronic cholecystitis without obstruction; M86.9 Osteomyelitis, unspecified; K80.20 Calculus of gallbladder without cholecystitis without obstruction; K70.10 Alcoholic hepatitis without ascites; E78.5 Hyperlipidemia, unspecified; H54.7 Unspecified visual loss; D17.9 Benign lipomatous neoplasm, unspecified; E78.00 Pure hypercholesterolemia, unspecified; I10 Essential (primary) hypertension; I70.0 Atherosclerosis of aorta; K21.0 Gastro-esophageal reflux disease with esophagitis; K52.9 Noninfective gastroenteritis and colitis, unspecified; K57.30 Diverticulosis of large intestine without perforation or abscess without bleeding; K76.0 Fatty (change of) liver, not elsewhere classified; M12.9 Arthropathy, unspecified; M89.9 Disorder of bone, unspecified; R63.3 Feeding difficulties; Z86.010 Personal history of colon polyps; Z87.01 Personal history of pneumonia (recurrent); Z87.891 Personal history of nicotine dependence